=== PATIENT | female | born 1945 | race Caucasian/White ===

== ENCOUNTER → 2020-02-15 12:09 | Outpatient (BNVA) | payer MEDICARE, OTHER, SELFPAY | PROVIDERS: Family Provider Nurse Practitioner | DX: Z11.59 Encounter for screening for other viral diseases (principal) | CPT/HCPCS: 87635 ==

== ENCOUNTER → 2020-02-18 11:23 | Outpatient (BNVA) | payer MEDICARE, SELFPAY | PROVIDERS: Family Provider Nurse Practitioner; Visit Provider Nurse Practitioner Family | DX: Z11.59 Encounter for screening for other viral diseases (principal) | CPT/HCPCS: 87635 ==

== ENCOUNTER → 2021-10-11 13:38 | Outpatient (BNVA) | payer MEDICARE, OTHER, SELFPAY | PROVIDERS: Family Provider Nurse Practitioner; Visit Provider Nurse Practitioner | DX: N39.0 Urinary tract infection, site not specified (principal) | CPT/HCPCS: 81000 ==

== ENCOUNTER → 2022-10-24 11:44 | Outpatient (BNVA) | payer MEDICARE, OTHER, SELFPAY | PROVIDERS: Family Provider Nurse Practitioner; Visit Provider Nurse Practitioner | DX: I10 Essential (primary) hypertension (principal) | CPT/HCPCS: 80048 ==

== ENCOUNTER → 2022-11-26 10:04 | Outpatient (BNVA) | payer MEDICARE, OTHER, SELFPAY | PROVIDERS: Family Provider Nurse Practitioner; Visit Provider Nurse Practitioner | DX: R50.9 Fever, unspecified (principal) | CPT/HCPCS: 81000; 85025; 87400; 87426 ==

== ENCOUNTER 2023-04-09 10:00 | Outpatient (CLI) | payer MEDICARE, OTHER, SELFPAY | END 2023-04-09 10:01 | disposition home or self-care (01) | LOC: SLEEP 04-10 11:17 | PROVIDERS: Family Provider Nurse Practitioner; Visit Provider Internal Medicine | DX: R06.02 Shortness of breath (principal) | CPT/HCPCS: 94762 ==

== ENCOUNTER → 2024-07-06 09:02 | Outpatient (BNVA) | payer MEDICARE, OTHER, SELFPAY | PROVIDERS: Family Provider Nurse Practitioner; PCP Nurse Practitioner Family; Visit Provider Nurse Practitioner Family | DX: S80.01XA Contusion of right knee, initial encounter (principal); M17.11 Unilateral primary osteoarthritis, right knee; M79.644 Pain in right finger(s); M19.041 Primary osteoarthritis, right hand; X58.XXXA Exposure to other specified factors, initial encounter | CPT/HCPCS: 73130; 73562 ==

== ENCOUNTER → 2024-08-11 13:37 | Outpatient (BNVA) | payer MEDICARE, OTHER, SELFPAY | PROVIDERS: Family Provider Nurse Practitioner; PCP Nurse Practitioner Family; Visit Provider Student in an Organized Health Care Education/Training Program | DX: M17.0 Bilateral primary osteoarthritis of knee (principal); M25.561 Pain in right knee; M25.562 Pain in left knee | CPT/HCPCS: 73560; 73565; 99204 ==

== ENCOUNTER 2024-09-02 14:58 | Outpatient (CLI) | payer MEDICARE, OTHER, SELFPAY ==
--- NOTE | 2024-09-02 15:08 | CT_ITS ---
WS: [id number] CT LEFT KNEE, NONCONTRAST [facility] TECHNIQUE: Noncontrast CT of the LEFT knee to include the LEFT hip and ankle. CLINICAL INFORMATION: LEFT TOTAL KNEE ARTHROPLASTY SURGICAL PLANNING DLP: 968.[address] scans at [facility] use at least one of these dose optimization techniques: automated exposure control; mA and/or kV adjustment per patient size (includes targeted exams where dose is matched to clinical indication); or iterative reconstruction. FINDINGS: Fixation RIGHT sacroiliac joint. Advanced tricompartment arthritis LEFT knee. Moderate joint effusion. Hypertrophic patella. Soft tissue edema about the knee. Osteopenia. Moderate degenerative narrowing both hips. CT/CT knee LT [place] [id number] IMPRESSION: Images obtained for preoperative purposes.
[2024-09-02 15:48] LABS: Basophils # 0.1 10^3/uL (0.0-0.1); Basophils % 1.1 %; Eosinophils # 0.4 10^3/uL (0.0-0.8); Eosinophils % 5.9 %; Hematocrit 33.6 % (36-47); Lymphocytes # 1.9 10^3/uL (0.8-4.8); Lymphocytes % 30.2 %; Mean Corpuscular HGB Conc 31.5 g/dL (30-55); Mean Corpuscular Hemoglobin 31.5 pg (27-33); Mean Corpuscular Volume 99.7 fl (85-98); Mean Platelet Volume 10.2 fL (7.4-10.4); Monocytes # 0.7 10^3/uL (0.2-0.9); Monocytes % 10.6 %; Neutrophils # 3.18 10^3/uL (1.8-7.7); Nucleated Red Blood Cells % 0 %; Platelet Count 230 10^3/cmm (157-399); Red Blood Count 3.37 10^6/uL (3.85-5.65); Red Cell Distribution Width 12.9 % (12.1-15.1); White Blood Count 6.12 10^3/uL (3.29-11.43)
[2024-09-02 16:00] LABS: Bilirubin Urine Negative (Negative); Blood Urine Negative (Negative); Glucose Urine UA Negative (Normal); Ketones Urine Negative (Negative); Leukocyte Esterase Urine Negative (Negative); Nitrate Urine Negative (Negative); Protein Urine 1+ (Negative); Specific Gravity, Urine 1.017 (1.005-1.030); Urine Appearance Clear (CLEAR); Urine Color Yellow (Yellow); Urobilinogen Urine 0.2 mg/dL (Negative); pH Urine 6.5 (5-7)
[2024-09-02 16:06] LABS: Alanine Aminotransferase < 5 U/L (0-33); Albumin Level 3.8 g/dL (3.5-5.2); Alkaline Phosphatase 120 U/L (35-105); Anion Gap 13.3 (5-19); Aspartate Amino Transferase 16 U/L (0-32); Blood Urea Nitrogen 29 mg/dL (8-23); Carbon Dioxide 29 mmol/L (22-29); Chloride 102 mmol/L (98-107); Globulin 2.8 g/dL (1.3-4.6); Glucose 107 mg/dL (65-115); Osmolality Calculated 296 mOsm/kg (285-295); Potassium 4.3 mmol/L (3.5-5.1); Sodium 140 mmol/L (136-145); Total Bilirubin 0.2 mg/dL (0.15-1.2); Total Protein 6.6 g/dL (6.6-8.7)
[2024-09-02 16:39] LABS: Add Urine Culture? No; Add Urine Microscopic? YES; Bacteria Urine TRACE /hpf; Squamous Epithelial Cell Urine 0-4 /hpf (0-5); UA Manual Slide Review YES; WBC Urine 0-4 /hpf (0-5)
== END 2024-09-02 14:59 | disposition home or self-care (01) ==
LOC: RAD 15:03
PROVIDERS: Family Provider Nurse Practitioner; PCP Nurse Practitioner Family; Visit Provider Student in an Organized Health Care Education/Training Program
DX: M17.12 Unilateral primary osteoarthritis, left knee (principal); Z01.818 Encounter for other preprocedural examination; M43.28 Fusion of spine, sacral and sacrococcygeal region; R93.6 Abnormal findings on diagnostic imaging of limbs; M85.80 Other specified disorders of bone density and structure, unspecified site; M16.0 Bilateral primary osteoarthritis of hip
CPT/HCPCS: 36415; 73700; 80053; 81001; 85025

== ENCOUNTER → 2024-09-06 11:12 | Outpatient (BNVA) | payer MEDICARE, OTHER, SELFPAY | PROVIDERS: Family Provider Nurse Practitioner; PCP Nurse Practitioner Family; Visit Provider Family Medicine | DX: Z01.818 Encounter for other preprocedural examination (principal); R94.31 Abnormal electrocardiogram [ECG] [EKG] | CPT/HCPCS: 93005 ==

== ENCOUNTER 2024-09-20 10:30 | Inpatient (IN) | payer MEDICARE, OTHER, SELFPAY ==
[2024-09-20] VITALS (21 sets, daily range): BP systolic 100–176; BP diastolic 61–81; PULSE 60–91; RESP 15–23; TEMP 36.1–36.9; O2SAT 93–99; BMI 34.3
--- NOTE | 2024-09-20 05:55 | USCV_ITS ---
Sal Mariano Age: 79 Gender: F : 1945 Exam Date: 09/20/2024 06:11 Ordering Phys: Saúl Moise DO Technologist: [place] [facility] [place]: [place] surg PROCEDURES: The venous duplex Doppler examination of both lower extremities was performed in the standard fashion. The following venous structures were evaluated: common femoral vein, profunda vein, proximal portion of the greater saphenous vein, superficial femoral vein, and the popliteal vein. FINDINGS: Normal 2-D Doppler and augmentation and compressibility throughout the lower extremity venous structures. Additional imaging through the proximal calf veins also reveals no thrombus. Limited evaluation of the greater saphenous vein is patent with no thrombus. CONCLUSIONS No evidence of right lower extremity DVT. No evidence of left lower extremity DVT. Lisanrdo Dias MD (Electronically Signed) Final Date: 20 September 2024 09:14 S
[2024-09-20] MEDS: lactated ringers 500 ML IV (06:33)
[2024-09-20] MEDS: acetaminophen 1,000 MG/100 ML PIGGYBACK 400 MG IV ×3 (06:35→23:25)
[2024-09-20] MEDS: midazolam 1 mg/mL INJ 2 mL 2 MG IVP (06:39)
[2024-09-20] MEDS: ketorolac 30 mg/mL INJ IVP (06:40)
[2024-09-20 06:41] LABS: Basophils # 0.1 10^3/uL (0.0-0.1); Eosinophils # 0.3 10^3/uL (0.0-0.8); Eosinophils % 4.6 %; Hematocrit 35.7 % (36-47); Lymphocytes # 1.8 10^3/uL (0.8-4.8); Lymphocytes % 26.5 %; Mean Corpuscular HGB Conc 33.9 g/dL (30-55); Mean Corpuscular Volume 94.4 fl (85-98); Monocytes # 0.8 10^3/uL (0.2-0.9); Monocytes % 10.8 %; Neutrophils # 3.95 10^3/uL (1.8-7.7); Neutrophils % 56.8 %; Nucleated Red Blood Cells % 0 %; Platelet Count 262 10^3/cmm (157-399); Red Blood Count 3.78 10^6/uL (3.85-5.65); Red Cell Distribution Width 12.8 % (12.1-15.1); White Blood Count 6.95 10^3/uL (3.29-11.43)
--- NOTE | 2024-09-20 06:52 | ANES.PREANE2 ---
Pre-Anesthetic Assessment Height/Weight: Height 1.63 m Weight 90.718 kg Temp Pulse Resp BP Pulse Ox O2 Del Method 97.0 F L 65 18 176/65 97 Room Air 09/20/24 06:47 09/20/24 06:47 09/20/24 06:47 09/20/24 06:47 09/20/24 06:47 09/20/24 06:47 Operation Date: 09/20/24 07:00 Proposed Procedures p Sher Robot Total Knee Arthroplasty(Left) - Saúl Moise DO Familial anesthetic complications: NOne Was Beta Eliana taken within 24 hours: N/A Was Clonidine taken within 24 hours: N/A Last intake: Intake Last Liquid Date 09/19/24 Last Liquid Time 22:00 Last Solid Date 09/19/24 Last Solid Time 22:00 Social No alcohol and No tobacco Exam alert, oriented x 3, clear to auscultation bilaterally and regular rate & rhythm Airway Mallampati: Class III Pulmonary Sleep Apnea CV/HEM Hypertension GI Gastroesophageal Reflux Disease Neuropsych parkinsons Anesthetic Plan ASA status: 3 Anesthesia: Regional (specify below) Other: Spinal = Regional Risk of > 500 ml blood loss (7ml/kg in children): No Other Pertinent Information patient had allergic reaction to contrast dye in CT myelogram, became paralyzed in her legs for just a few minutes Medications/Allergies Home Medications ?Medication ?Instructions ?Recorded ?Confirmed ?Last Taken ?Type cyanocobalamin (vitamin B-12) 1,000 mcg SUBCUT DAILY 10/11/21 09/20/24 09/10/24 History 1,000 mcg/mL injection solution famotidine 40 mg tablet 40 mg PO DAILY 10/11/21 09/20/24 09/20/24 History ferrous fumarate 325 mg (106 mg 325 mg PO DAILY 10/11/21 09/20/24 09/20/24 History iron) tablet gabapentin 100 mg capsule 100 mg PO TID 10/11/21 09/20/24 09/20/24 History lorazepam 1 mg tablet 1 mg PO TID PRN Anxiety 10/11/21 09/20/24 09/17/24 History magnesium oxide 500 mg capsule 500 mg PO DAILY 10/11/21 09/20/24 09/20/24 History memantine 10 mg tablet 10 mg PO BID 10/11/21 09/20/24 09/20/24 History albuterol sulfate 90 mcg/actuation 1 inh inhalation QID 08/11/24 09/20/24 Unknown History aerosol inhaler carbidopa 25 mg-levodopa 100 mg 1 tab PO TID 08/11/24 09/20/24 09/20/24 History tablet (Sinemet) carvedilol 12.5 mg tablet 12.5 mg PO ONCE 08/11/24 09/20/24 09/17/24 History diltiazem HCl 240 mg 240 mg PO DAILY 08/11/24 09/20/24 09/20/24 History capsule,extended release 24 hr (Cardizem CD) donepezil 10 mg tablet 10 mg PO DAILY 08/11/24 09/20/24 09/20/24 History duloxetine 60 mg capsule,delayed 60 mg PO DAILY 08/11/24 09/20/24 09/20/24 History release fluticasone furoate 27.5 1 spray intranasal DAILY 08/11/24 09/20/24 09/17/24 History mcg/actuation nasal spray,suspension lisinopril 40 mg tablet 40 mg PO DAILY 08/11/24 09/17/24 09/17/24 History mirtazapine 15 mg tablet 15 mg PO DAILY 08/11/24 09/20/24 09/20/24 History multivitamin 1 tab PO DAILY 08/11/24 09/20/24 09/20/24 History pantoprazole 40 mg tablet,delayed 40 mg PO DAILY 08/11/24 09/20/24 09/20/24 History release rosuvastatin 10 mg tablet 10 mg PO DAILY 08/11/24 09/20/24 09/20/24 History tramadol 50 mg tablet 50 mg PO DAILY 08/11/24 09/20/24 09/17/24 History Allergies Allergy/AdvReac Type Severity Reaction Status Date / Time ivp dye Allergy Unknown Uncoded 09/20/24 06:18 Current Medications Generic Name Dose Route Start Last Admin Trade Name Freq PRN Reason Stop Dose Admin Lactated Ringer's 500 mls @ 500 mls/hr 09/20/24 05:55 09/20/24 06:33 Lactated Ringers IV 09/20/24 06:54 500 mls/hr .Q1H ONE Administration Midazolam HCl 2 mg 09/20/24 05:54 09/20/24 06:39 Midazolam 1 Mg/Ml Inj 2 Ml IVP 2 mg Q5M PRN Administration [facility]op [facility] Social History Smoking and tobacco/nicotine status: never used tobacco/nicotine Marital status: Data Anesthesia 09/20/24 06:29 09/20/24 06:29 Short CBC 09/20/24 Range/Units 06:29 WBC 6.95 (3.29-11.43) 10^3/uL Hgb 12.10 (11.27-16.99) g/dL Hct 35.7 L (36-47) % MCV 94.4 (85-98) fl Plt Count 262 (157-399) 10^3/cmm Neut % (Auto) 56.8 % Neut # (Auto) 3.95 (1.8-7.7) 10^3/uL Cardiac Studies: No Data to Display
--- NOTE | 2024-09-20 06:54 | ANES.PROC ---
Anesthesia Procedures Procedure/Date: 09/20/24 Nerve Block ^: Nerve Block 1: Main Anesthesia: spinal anesthesia block Time Out Performed: Yes Consent: requested by attending/covering physician, from patient, from other, risks and benefits reviewed and patient agrees to proceed Nerve block location: adductor canal (L) Anesthesia monitors applied: pulse oximetry, EKG, BP cuff and oxygen Nerve block position: supine Anesthetic Used: ropivicaine 0.5% (30 ml) and with decadron (4 mg) Ultrasound used to: recognize landmarks and visualize and ID femerol nerve Nerve Stimulator Used?: No Interscalene/Femoral BLK: 4 stimuplex 21 g needle used for position and inplane approach, visualize local anesthetic spread and no vascular puncture identified Injection: neg aspiration of heme Patient Tolerated Procedure: well Complications: none
--- NOTE | 2024-09-20 06:57 | W.PM.OPSFHP ---
Same Day Surgery H&P Indication for Procedure/HPI DATE OF PROCEDURE: September 20, 2024 CHIEF COMPLAINT/INDICATIONFOR SURGICAL PROCEDURE: Left knee DJD PREOP DIAGNOSIS: Left knee DJD PLANNED PROCEDURE: Operation Date: 09/20/24 07:00 Proposed Procedures p Sher Robot Total Knee Arthroplasty(Left) - Saúl Moise, DO Medications/Allergies* Home Medications ?Medication ?Instructions ?Recorded ?Confirmed ?Type cyanocobalamin (vitamin B-12) 1,000 mcg SUBCUT DAILY 10/11/21 09/20/24 History 1,000 mcg/mL injection solution famotidine 40 mg tablet 40 mg PO DAILY 10/11/21 09/20/24 History ferrous fumarate 325 mg (106 mg 325 mg PO DAILY 10/11/21 09/20/24 History iron) tablet gabapentin 100 mg capsule 100 mg PO TID 10/11/21 09/20/24 History lorazepam 1 mg tablet 1 mg PO TID PRN Anxiety 10/11/21 09/20/24 History magnesium oxide 500 mg capsule 500 mg PO DAILY 10/11/21 09/20/24 History memantine 10 mg tablet 10 mg PO BID 10/11/21 09/20/24 History albuterol sulfate 90 mcg/actuation 1 inh inhalation QID 08/11/24 09/20/24 History aerosol inhaler carbidopa 25 mg-levodopa 100 mg 1 tab PO TID 08/11/24 09/20/24 History tablet (Sinemet) carvedilol 12.5 mg tablet 12.5 mg PO ONCE 08/11/24 09/20/24 History diltiazem HCl 240 mg 240 mg PO DAILY 08/11/24 09/20/24 History capsule,extended release 24 hr (Cardizem CD) donepezil 10 mg tablet 10 mg PO DAILY 08/11/24 09/20/24 History duloxetine 60 mg capsule,delayed 60 mg PO DAILY 08/11/24 09/20/24 History release fluticasone furoate 27.5 1 spray intranasal DAILY 08/11/24 09/20/24 History mcg/actuation nasal spray,suspension lisinopril 40 mg tablet 40 mg PO DAILY 08/11/24 09/17/24 History mirtazapine 15 mg tablet 15 mg PO DAILY 08/11/24 09/20/24 History multivitamin 1 tab PO DAILY 08/11/24 09/20/24 History pantoprazole 40 mg tablet,delayed 40 mg PO DAILY 08/11/24 09/20/24 History release rosuvastatin 10 mg tablet 10 mg PO DAILY 08/11/24 09/20/24 History tramadol 50 mg tablet 50 mg PO DAILY 08/11/24 09/20/24 History Allergies/Adverse Reactions Allergy/AdvReac Type Severity Reaction Status Date / Time ivp dye Allergy Unknown Uncoded 09/20/24 06:18 Current Medications: Generic Name Dose Route Start Last Admin Trade Name Deandre PRN Reason Stop Dose Admin Midazolam HCl 2 mg 09/20/24 05:54 09/20/24 06:39 Midazolam 1 Mg/Ml Inj 2 Ml IVP 2 mg Q5M PRN Administration Preop Anxiety Pertinent History/Comorbid Conditions* Social History Smoking and tobacco/nicotine status: never used tobacco/nicotine Marital status: Pertinent Exam Findings alert, oriented x 3, operative site marked and procedure specific exam findings Please refer to detailed orthopedic examination on 08/11/2024 listed below: Left knee Exam: ROM 5-105 degrees TTP over retropatellar space Patellar crepitus with ROM Medial joint line tenderness to palpation Lateral joint line tenderness to palpation Palpable joint effusion Negative Kinza's Negative Tim's Negative anterior drawer 5-10 degrees of Varus deformity, correctable on examStable Varus and Valgus stress Gross motor sensory intact Smooth hip ROM, No pain Recommendations Surgery/Procedure today Other Plans: Plan proceed to the OR today for a left total knee arthroplasty?Sher robotic assisted. Patient's failed all conservative treatment at this point time ready to proceed with left total knee arthroplasty?Sher robotic assisted she understands the ins and outs procedure the risk benefits complication alternatives surgery and through shared decision-making elects proceed with surgical intervention. All questions answered at this time. Patient is cleared the preoperative clearance process she has had no change in overall health since her last office visit. We did get a preoperative ultrasound scan of the bilateral lower extremities just to rule out any asymptomatic blood clot as she did have a history of a DVT when she was 19 after a trauma. This was done this morning and and confirmed by solar technician clear no evidence of acute DVT. Patient at this point times ready to proceed with left total knee arthroplasty all questions answered. Coding Level of Care Code Acute Code for Singh Rockwell
[2024-09-20] MEDS: ceFAZolin 2,000 MG in sodium chloride 0.9% (plus) 50 ML 100 MG IV ×3 (07:16→23:43)
[2024-09-20] MEDS: sodium chloride 0.9% 1,000 ML 30 ML IV (07:20)
[2024-09-20 07:35] LABS: Blood Urea Nitrogen 27 mg/dL (8-23); Calcium 8.9 mg/dL (8.5-10.5); Carbon Dioxide 27 mmol/L (22-29); Chloride 104 mmol/L (98-107); Creatinine Clr Calc Pharmacy 36.1305; Glucose 103 mg/dL (65-115); Osmolality Calculated 297 mOsm/kg (285-295); Sodium 141 mmol/L (136-145)
[2024-09-20 07:36] LABS: Anion Gap 14.4 (5-19); Potassium 4.4 mmol/L (3.5-5.1)
[2024-09-20] MEDS: EPINEPHrine 1 mg/mL INJ XX (08:20)
[2024-09-20] MEDS: ROPivacaine 0.2% Premix 100 mL 200 MG INTRA-ARTI (08:20)
[2024-09-20] MEDS: ketorolac 30 mg/mL INJ XX (08:20)
[2024-09-20] MEDS: VANCOMYCIN ADD-Vantage 1,000 MG VIAL 2000 MG XX (08:22)
--- NOTE | 2024-09-20 09:53 | W.PM.BPON ---
Date of Procedure: [September 20, 2024] Surgeon: [Dr. Moise DO] Granular Operator(s): [Aris Moise PA-C] Procedure(s) performed: [Left total knee arthroplasty with Sher robotic assist] Findings of the procedure(s): [Left knee degenerative joint disease, procedure went well and as planned] Estimated blood loss: [50 ml] Specimen(s) removed: [N/A] Post-operative diagnosis: [Left knee degenerative joint disease]
--- NOTE | 2024-09-20 09:55 | PM.PACU ---
PACU note Narrative: Patient is a 79-year-old female that just underwent a left total knee arthroplasty. Pt transferred to PACU in stable condition. Dressing is dry. pt is awake and alert. Distal pulses are palpable toes are warm and well-perfused. Cap refill is normal and under 2 seconds. Unable to further assess motor or sensation to left leg due to residual spinal block. Pain is controlled. Exam: awake Disposition: admitted
--- NOTE | 2024-09-20 10:14 | XRR_ITS ---
PROCEDURE INFORMATION: Exam: XR Left Knee Exam date and time: 09/20/2024 11:32 AM Age: 79 years old Clinical indication: Device placement; Joint replacement hardware; Prior surgery; Surgery date: Post-operative (0-2 days); Surgery type: L tka, ; additional info: Post L tka, do in pacu TECHNIQUE: Imaging protocol: Radiologic exam of the left knee. Views: 1 or 2 views. COMPARISON: CT knee LT [facility] [id number] 09/02/2024 3:12 PM FINDINGS: Bones/joints: Total knee replacement. Anatomic alignment. Bone and metal are intact. Soft tissues: Soft tissue swelling. Periarticular and intra-articular gas. Anterior skin patricia. XR/XR knee LT 1-2V [id number] IMPRESSION: Postoperative findings.
--- NOTE | 2024-09-20 10:16 | P.OP_ITS ---
Operative Report Date of procedure: September 20, 2024 Surgeon: Saúl Moise DO Solar Design Engineer: Aris Moise PA-C: PA was necessary for assistance in this case with leg positioning retraction and protection of neurovascular structures as well as assistance in implantation wound closure and dressing application. Procedure: Preoperative diagnosis: Left knee degenerative joint disease Post-op diagnosis: Same Procedure done: Left total knee arthroplasty, cemented?robotic assisted Sher Implants: Dami triathlon size 3 femur CR cemented?left Dami triathlon size? 3 tibia universal baseplate cemented [place] triathlon symmetric patella size 29 mm [place] triathlon polyethylene 10mm Surgeon: Saúl Moise DO Estimated blood?loss: 50 mL Tourniquet 70 minutes IV fluids: 1800 mL Urine output: 200 mL Complications: None Condition: stable Disposition: floor Brief History: Patient is a 79-year-old female with with chronic?left knee degenerative joint d isease.? Patient has been worked up in the outpatient setting in the orthopedic office at this point time through shared decision making given? [id number] arthritis as well as failed conservative treatment, and pt would?like to proceed with a?left total knee arthroplasty.? Through shared decision making elected to proceed with surgical intervention for?left total knee arthroplasty.? We talked about continued conservative treatment and surgical intervention as far as the risk benefits complications alternatives surgical and nonsurgical treatment options.? At this point time understanding patient risks with surgery pt agrees to proceed with surgical intervention.? Once again? risk with surgery include but are not?limited to make it better make it worse blood clot, heart attack, stroke, on the table, infection, injury to nerves or vessels, persistent pain, arthrofibrosis, implant failure.? Understanding these risks patient agrees to proceed with surgical intervention consent was obtained in the office.? All questions answered. Procedure: Patient was seen and evaluated in the preoperative holding area.? Consent was reviewed and signed with patient with plan for?left total knee arthroplasty.? All questions answered.? Correct extremity marked.? Patient seen and evaluated by the anesthesia department and once cleared for surgery was taken back to the operative suite.? Patient was placed into a supine position on the OR table.? All bony prominences were well-padded.? Patient was appropriately secured to the bed.? Patient underwent anesthesia per the anesthesia department.? Patient received spinal anesthesia and? Choudhury catheter was placed.? A nonsterile tourniquet was applied to the?left thigh.? At this point in time a final timeout performed.? Patient received appropriate preoperative antibiotics and TXA. Next the?left?lower extremity was then prepped and draped in standard orthopedic fashion. Esmarch tourniquet was used exsanguinate the?left?lower extremity.? Tourniquet was insufflated to 250 mmHg. A standard anterior incision was made over midline of the knee.? Sharp scalpel excision through skin and subcutaneous tissue full-thickness skin flaps were m moira.? Fascia was elevated off of the extensor retinaculum was stable with medial parapatellar arthrotomy was then made.? The performed standard sequential releases..? Immediately on entry into the joint patient was found to have severe eburnated bone and tricompartmental arthritic changes noted.? With significant osteophyte formation.? Next the the patella was then stuffed and the knee was then flexed.?? Ryan was placed superiorly around the anterior aspect of the femur this was freed of synovium and I subsequently then placed by 2 femur pins to establish my femur arrays for the Sher robot.? These were then placed bicortically and? femur array was then appropriately secured with appropriate visualization.? Next attention was turned towards the tibial rays.? These were then drilled seque ntially bicortically in parallel fashion and intraincisional.? I then placed my guide as well as my tibial array on in place.? This was appropriately secured and had excellent visualization with the Sher robot.? Next the tibial checkpoint as well as femur checkpoint were then placed.? At this point time I then subsequently established my head center as well as my medial?lateral malleoli as well as my checkpoints.? Next utilizing standard Sher technology I then mapped out the appropriate points and confirmation points around the femur as well as the tibia in standard fashion.? Once this was then done I then removed all osteophytes in preparation for dynamic testing.? All osteophytes were removed as well as I removed the ACL and the PCL was excised due to its significant tearing and degeneration noted.? At this point time the knee was brought into full extension and we performed our standard evaluation of our gap balancing stressing his?ligaments and extension as well as flexion appropriate adjustments were made to have appropriate gap balancing in both flexion and extension.? This plan for final cuts.? We get a preoperative plan evaluating our implants which was a size 3 femur and a size 3 tibia.? Next we brought in the Sher robot and sequentially made our femur cuts.? All excess bony cuts were then removed.? Finally we made our tibial cut.? Once this was done a standard PCL retractor was then placed into this position I excised the medial and?lateral meniscus.? The tibial cut was then subsequently removed all excess bony debris was removed.? Of note patient did have a cyst anteriorly on the tibial was still intact cortical rim plan was to utilize cementation which would fill up the cyst this was scooped and debrided of any cystic tissue. I then utilized a?lamina adult basic education instructor and remove the posterior osteophytes.? At this point time sized the tibia and confirmed this was a size 3.? I utilized our blunt probe to establish rotation of tibial implant.? Once this was done I then placed my tibia size 3 trial in appropriate position and then subsequently placed tibial pins to hold this into place placed and trialed up to a size 10 mm poly as well as a size 3 femur which was appropriately impacted in place knee was then subsequently brought into extension. Trials were then assessed,? this was stable with varus valgus stress in extension as well as had symmetrical translation when brought into flexion demonstrating symmetrical gaps. I had excellent balance gaps in flexion and extension with varus and valgus stresses.? At this point I was satisfied with these implants these were then verified and opened on the back table size 3 tibia, size 3 femur,? size 10 mm polythickness.? We did confirm appropriate gap balancing and stresses as well as alignment utilizing? Sher and were satisfied with this plan.? ?At this point time with my trials in place I then towel clip the patella everted this made appropriate measurements subsequently utilizing freehand technique performed by patellar resurfacing this was confirmed to be appropriate resection and subsequently sized to be a 29 mm symmetric.? My drill peg guides were then clamped and appropriate position and appropriate position in the patella for appropriate tracking and parallel with the joint.? Pegs were drilled trial implant was placed and the knee was then subsequently ranged and found to have excellent patellar tracking.? Femur pegs were then drilled.? All checkpoints as well as guidepins and arrays were removed and appropriate counts made.? Satisfied with our tibial placement rotation I then utilized the keel punch and prepped the tibia.? At this point time all of our trial implants were removed.? The wound bed? was thoroughly irrigated and dried and prepped for cementation.? Cement was mixed on the back table.? Once cement was ready this was then covered onto the tibia and the tibial baseplate was then impacted and all excess cement was removed.? Next the polyethylene was then impacted into place on the tibial baseplate.? Next cement was placed onto the femur as well as under the femur implants and impacted in to place and all excess cement was extruded and removed.? Knee was taken into full extension? to clear all excess cement was removed.? Warm saline was placed over the joint.? I then towel clip patella and dried for cementation. cemented the patella into place.? This was all clamped and the cement was allowed to cure.? Thorough irrigation performed with pulse?lavage.? I then placed my periarticular injection while the cement was curing.? Once cured the knee was taken through range of motion and had excellent stability and gaps were balanced in flexion and extension.? Tourniquet was then deflated. hemostasis satisfactory with electrocautery.? Vancomycin powder was placed in wound bed for antibiotic infection prophylaxis. next I then subsequently closed the capsule with Ethibond suture as well as a running strata fix suture.? Knee was then taken through range of motion 30 times.? Next the skin was then closed in?layered fashion of running stratifix sutures of deep and subcutenous tissue. ?Closed in flexion and patricia was then placed over the incision this allowed to cure.? Incision was covered with shannon incisional VAC, with ABDs soft roll and Danny wrap.? Patient was then awakened from anesthesia and taken to PACU in stable condition. Disposition: Patient taken to PACU in stable condition will be admitted to the floor for pain control PT/OT weight-bear as tolerated?left?lower extremity dressing changes as needed, DVT prophylaxis. Pain control. Patient will receive appropriate postoperative antibiotics. patient will be seen today by the internal medicine team for medical management.? Patient will follow up with the office in 2 weeks.? Patient understands agrees with current plan.? All questions answered.
--- NOTE | 2024-09-20 10:47 | SUR.EXTENDED ---
Pt A&O x3, denies pain, ice on left knee. Vitals stable, see documentation. Choudhury catheter no kinks, bag hanging on bed. Pt taken to OB room, RN at bedside with three of pt's family members. 20gIV R forearm patent.
--- NOTE | 2024-09-20 10:55 | PM.CONSULT ---
Providers/Reason For Consult Consulting Physician/Specialty*: Hospitalist Reason for Consult*: Medical management Attending Physician: Saúl Moise DO Primary Care Provider: Sixto Paul MD History of Present Illness History of Present Illness Very pleasant 79-year-old lady with history of Parkinson's disease, hypertension, hyperlipidemia, TIMOTHY, CKD, remote history of DVT, bradycardia, status post PPM in May, follows with cardiology in [place], anemia, osteoarthritis of both knees underwent total left knee replacement in an uneventful procedure with spinal anesthesia, EBL 50 mL today. A consult has been placed for hospitalist follow-up due to chronic medical conditions. She reports she otherwise has been at baseline state of health. Denies any recent medication changes. Without other recent acute illness. Review of Systems Const: Denies: fever(s), chills, body aches or malaise ENMT: Denies: throat pain Card: Denies: chest pain, edema, pre-syncope or dyspnea on exertion Resp: Denies: dyspnea, productive cough, change in phlegm color or hemoptysis GI: Denies: abdominal pain, nausea, vomiting, diarrhea, constipation, hematochezia or melena : Denies: flank pain, urinary frequency or hematuria Musc: Reports: other (Difficulties with ambulation); Denies: back pain, joint swelling or joint redness Skin/Breast: Denies: rash or new lesions Neuro: Denies: headache(s) or confusion Medications/Allergies Home Medications ?Medication ?Instructions ?Recorded ?Confirmed ?Last Taken ?Type cyanocobalamin (vitamin B-12) 1,000 mcg SUBCUT DAILY 10/11/21 09/20/24 09/10/24 History 1,000 mcg/mL injection solution famotidine 40 mg tablet 40 mg PO DAILY 10/11/21 09/20/24 09/20/24 History ferrous fumarate 325 mg (106 mg 325 mg PO DAILY 10/11/21 09/20/24 09/20/24 History iron) tablet gabapentin 100 mg capsule 100 mg PO TID 10/11/21 09/20/24 09/20/24 History lorazepam 1 mg tablet 1 mg PO TID PRN Anxiety 10/11/21 09/20/24 09/17/24 History magnesium oxide 500 mg capsule 500 mg PO DAILY 10/11/21 09/20/24 09/20/24 History memantine 10 mg tablet 10 mg PO BID 10/11/21 09/20/24 09/20/24 History albuterol sulfate 90 mcg/actuation 1 inh inhalation QID 08/11/24 09/20/24 Unknown History aerosol inhaler carbidopa 25 mg-levodopa 100 mg 1 tab PO TID 08/11/24 09/20/24 09/20/24 History tablet (Sinemet) carvedilol 12.5 mg tablet 12.5 mg PO ONCE 08/11/24 09/20/24 09/17/24 History diltiazem HCl 240 mg 240 mg PO DAILY 08/11/24 09/20/24 09/20/24 History capsule,extended release 24 hr (Cardizem CD) donepezil 10 mg tablet 10 mg PO DAILY 08/11/24 09/20/24 09/20/24 History duloxetine 60 mg capsule,delayed 60 mg PO DAILY 08/11/24 09/20/24 09/20/24 History release fluticasone furoate 27.5 1 spray intranasal DAILY 08/11/24 09/20/24 09/17/24 History mcg/actuation nasal spray,suspension lisinopril 40 mg tablet 40 mg PO DAILY 08/11/24 09/17/24 09/17/24 History mirtazapine 15 mg tablet 15 mg PO DAILY 08/11/24 09/20/24 09/20/24 History multivitamin 1 tab PO DAILY 08/11/24 09/20/24 09/20/24 History pantoprazole 40 mg tablet,delayed 40 mg PO DAILY 08/11/24 09/20/24 09/20/24 History release rosuvastatin 10 mg tablet 10 mg PO DAILY 08/11/24 09/20/24 09/20/24 History tramadol 50 mg tablet 50 mg PO DAILY 08/11/24 09/20/24 09/17/24 History Allergies Allergy/AdvReac Type Severity Reaction Status Date / Time ivp dye Allergy Unknown Uncoded 09/20/24 06:18 Current Medications Generic Name Dose Route Start Last Admin Trade Name Freq PRN Reason Stop Dose Admin Sodium Chloride 1,000 mls @ 30 mls/hr 09/20/24 06:00 09/20/24 08:45 Sodium Chloride 0.9% IV 09/21/24 05:59 Infused .Q24H MERLINE Infusion Midazolam HCl 2 mg 09/20/24 05:54 09/20/24 06:39 Midazolam 1 Mg/Ml Inj 2 Ml IVP 2 mg Q5M PRN Administration Preop Anxiety PFSH Acute PFSH: Medical History Pacemaker Bradycardia Anemia DVT (deep venous thrombosis) CKD (chronic kidney disease) TIMOTHY (obstructive sleep apnea) HLD (hyperlipidemia) HTN (hypertension) Parkinson disease Social History Smoking and tobacco/nicotine status: never used tobacco/nicotine Marital status: Vitals/I&O/Wt Last Vital Signs Temp 97.6 F 09/20/24 10:20 Pulse 60 09/20/24 10:20 Resp 23 H 09/20/24 10:20 BP 155/68 09/20/24 10:20 Pulse Ox 95 09/20/24 10:20 O2 Del Method Room Air 09/20/24 10:20 09/19/24 09/20/24 09/20/24 22:59 06:59 14:59 Intake Total 100 / 100 2350 / 2350 Output Total 50 / 50 Balance 100 / 100 2300 / 2300 Weight last 48 hrs Weight 90.718 kg Physical Exam Const: COMMON NORMALS: patient oriented x3 and alert GENERAL APPEARANCE: cooperative ORIENTATION/CONSCIOUSNESS: Yes awake HENMT: COMMON NORMALS: oropharynx normal Neck/C-Spine: COMMON NORMALS: no JVD Resp: COMMON NORMALS: normal respiratory effort and clear to auscultation bilaterally AUSCULTATION: clear to auscultation bilaterally Cardio: COMMON NORMALS: no JVD, regular rhythm, S1 normal heart sound present, S2 normal heart sound present and No murmurs present (Cardio) RHYTHM: regular rhythm HEART SOUNDS: S1 normal heart sound present and S2 normal heart sound present GI: COMMON NORMALS: Normal to inspection, nondistended, normoactive bowel sounds present, Soft to palpation and non-tender PALPATION: Yes Soft to palpation Extremity: COMMON NORMALS: no joint enlargement and no pedal edema NARRATIVE EXTREMITY EXAM: Left leg in postoperative dressing. Left knee minimal wound VAC. Cold pack. OTHER: She is moving her left foot. Neuro: COMMON NORMALS: patient oriented x3 and moves all extremities SENSORIUM/ORIENTATION: Yes alert Skin: COMMON NORMALS: no rashes or lesions noted GENERAL SKIN EXAM: no rashes or lesions noted Data 09/20/24 06:29 09/20/24 07:00 A&P Assessment and plan (1) S/P total knee arthroplasty: Continues with postoperative care per discussion with orthopedic surgeon after total knee arthroplasty, after uneventful procedure, with spinal dysphagia, EBL 50 mL. Does have history of anemia, pending recheck blood counts tomorrow. Tells me she has pending PT evaluation as well as Eliquis plan for VTE prophylaxis. Also pending case management consultation for postdischarge planning. She does states she has been having mobility difficulties for some time. Per discussion with her family and orthopedics for now it has been tentatively planned for her to return home with home health, although this may be adjusted depending on how she does on assessment. Reviewed vitals, CBC, BMP, venous duplex, orthopedic provider note, discussed with orthopedic surgeon. She does have history of anemia, additionally takes SSRI at home as well as tramadol. Consider holding tramadol if possible with increasing risk of bleeding especially coagulation with SSRI. Acetaminophen, oxycodone as needed for pain. IV Dilaudid as needed for severe breakthrough pain. Currently on IV fluids, resume from oral intake. Reassess blood pressure. Monitor for risk of fluid overload. Plan History of anemia: Repeat blood counts. Would hold tramadol if at all possible. Reassess blood counts. Continue iron supplementation. CKD: Creatinine 1.4 appears to be close to recent baseline. Repeat chemistry pending. Avoid nephrotoxins. Parkinson's disease: Resume carbidopa-levodopa which she takes 3 times daily. HTN: Monitor blood pressures postoperatively. Resume diltiazem. Reassess blood pressure, having been receiving IV fluids once she is resuming oral intake stop IV fluids. Reassess blood pressure prior to resumption of lisinopril. HLD: Continue statin TIMOTHY: Respiratory for consultation for nightly CPAP with 2 L of oxygen. 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 PDMP PDMP Reviewed: Not Reviewed Consult Attestations Medical Necessity Statement: Being observed in the hospital for postoperative management after left TKA with additional comorbidities as above. and High MDM includes amount and/or complexity of data reviewed/ordered [ previous or external records and resulted lab(s)/test(s)] and described risk of complication, morbidity or mortality of management as documented Diagnoses S/P total knee arthroplasty Z96.659
[2024-09-20] MEDS: lactated ringers 1,000 ML 75 ML IV (11:14)
[2024-09-20] MEDS: oxyCODONE 5 mg IR Tab/Cap PO ×3 (12:01→23:51)
[2024-09-20] MEDS: carbidopa-levodopa 25-100mg Tablet 1 EACH PO ×2 (12:33→18:09)
[2024-09-20] MEDS: gabapentin 100 mg Capsule PO ×2 (12:33→18:09)
--- NOTE | 2024-09-20 14:03 | ANE.PACU2 ---
Inpatient post-anesthesia follow up: Airway intact: Yes Vital signs: Temperature 97.6 F Pulse Rate 60 Respiratory Rate 16 Blood Pressure 155/68 Pulse Oximetry 95 Oxygen Delivery Me thod Room Air Oxygen Flow Rate Fraction of Inspir ed Oxygen Hydration adequate: Yes Nausea and vomiting: No Pain level: 1 Mental status: Baseline
[2024-09-20] MEDS: chlorhexidine gluconate 0.12% Btl 473 mL 30 ML MUCOUS MEM ×3 (14:05→20:02)
[2024-09-20] MEDS: iron polysaccharide complex 150 mg Capsule PO (18:08)
[2024-09-20] MEDS: mupirocin oint 22 gm 1 APPLIC NASAL (18:08)
[2024-09-20] MEDS: docusate sodium 100 mg Capsule PO (18:09)
[2024-09-20] MEDS: calcium carb-vit d 600mg/400unit 1 Tablet 1 EACH PO (18:09)
[2024-09-20] MEDS: dilTIAZem ER (24HR) 240 mg Capsule PO (18:10)
[2024-09-20] MEDS: memantine 5 mg tablet 10 MG PO (18:31)
[2024-09-20] MEDS: mirtazapine 15 mg Tablet PO (18:31)
[2024-09-20] MEDS: HYDROmorphone 0.5 MG/0.5 ML INJ IVP (20:02)
[2024-09-21] VITALS (11 sets, daily range): BP systolic 130–185; BP diastolic 60–82; PULSE 76–83; RESP 16–18; TEMP 36.6–36.9; O2SAT 94–97
[2024-09-21] MEDS: lactated ringers 1,000 ML 75 ML IV (01:16)
[2024-09-21 05:03] LABS: Basophils % 0.2 %; Eosinophils % 0.1 %; Hematocrit 28.9 % (36-47); Lymphocytes # 1.2 10^3/uL (0.8-4.8); Lymphocytes % 10.5 %; Mean Corpuscular HGB Conc 31.5 g/dL (30-55); Mean Corpuscular Hemoglobin 31.8 pg (27-33); Mean Platelet Volume 10.9 fL (7.4-10.4); Monocytes # 0.9 10^3/uL (0.2-0.9); Monocytes % 7.8 %; Neutrophils # 9.12 10^3/uL (1.8-7.7); Nucleated Red Blood Cells % 0 %; Platelet Count 265 10^3/cmm (157-399); Red Blood Count 2.86 10^6/uL (3.85-5.65); Red Cell Distribution Width 12.6 % (12.1-15.1); White Blood Count 11.25 10^3/uL (3.29-11.43)
[2024-09-21] MEDS: acetaminophen 1,000 MG/100 ML PIGGYBACK 400 MG IV (05:45)
[2024-09-21] MEDS: oxyCODONE 5 mg IR Tab/Cap PO ×4 (05:56→20:40)
[2024-09-21] MEDS: ceFAZolin 2,000 MG in sodium chloride 0.9% (plus) 50 ML 100 MG IV (06:09)
[2024-09-21] MEDS: chlorhexidine gluconate 0.12% Btl 473 mL 30 ML MUCOUS MEM (08:36)
[2024-09-21] MEDS: iron polysaccharide complex 150 mg Capsule PO ×2 (08:36→18:11)
[2024-09-21] MEDS: ferrous sulfate EC 325 mg Tablet PO (09:29)
[2024-09-21] MEDS: gabapentin 100 mg Capsule PO ×3 (09:29→18:10)
[2024-09-21] MEDS: donepezil 5 MG Tablet 10 MG PO (09:30)
[2024-09-21] MEDS: pantoprazole DR 40 mg Tablet PO (09:30)
[2024-09-21] MEDS: carbidopa-levodopa 25-100mg Tablet 1 EACH PO ×3 (09:30→18:11)
[2024-09-21] MEDS: apixaban 5 mg Tablet 2.5 MG PO ×2 (09:31→18:11)
[2024-09-21] MEDS: docusate sodium 100 mg Capsule PO ×2 (09:31→18:11)
[2024-09-21] MEDS: atorvastatin 40 mg Tablet PO (09:32)
[2024-09-21] MEDS: duloxetine 30 mg Capsule PO (09:33)
[2024-09-21] MEDS: multivitamin therapeutic Tablet 1 TAB PO (09:33)
[2024-09-21] MEDS: famotidine 20 mg Tablet 40 MG PO (09:33)
[2024-09-21] MEDS: mupirocin oint 22 gm 1 APPLIC NASAL ×2 (09:34→18:14)
[2024-09-21] MEDS: calcium carb-vit d 600mg/400unit 1 Tablet 1 EACH PO ×2 (09:34→18:11)
[2024-09-21] MEDS: memantine 5 mg tablet 10 MG PO ×2 (09:43→18:10)
--- NOTE | 2024-09-21 12:40 | PM.DCS ---
Discharge Providers Date of Admission: 09/20/24 10:30 Date of Discharge: September 21, 2024 Attending Provider at Admission: Saúl Moise DO Attending Provider at Discharge: Saúl Moise DO Primary Care Provider: Sixto Paul MD Diagnoses at Discharge Discharge Diagnosis (1) S/P total knee arthroplasty: Status: Acute Reason for Visit Reason for Visit: M17.0 Physical Exam Urinary Catheter Management: Choudhury: Cath Placed During This Visit: yes, but has since been removed by the nurse Reason for Continuing Indwelling Catheter: Decision to DC Catheter Urinary Catheter Date of Insertion: 09/20/24 Urinary Catheter Time of Insertion: 07:40 Date Urinary Catheter Removed: 09/20/24 Time Urinary Catheter Discontinued: 23:20 Discharge Data Studies Completed and Pending Completed Studies During Hospitalization Category Date Time Status XR knee LT 1-2V 23263 Routine Exams 09/20/24 10:14 Completed US venous duplex lower extremity bilat [CV venous Ultrasound 09/20/24 05:55 [place] [id number]] Stat Pending at discharge Category Date Time Status Basic Metabolic Panel AM LABS Lab 09/22/24 04:00 Ordered Basic Metabolic Panel AM LABS Lab 09/23/24 04:00 Ordered Basic Metabolic Panel Routine Lab 09/21/24 12:35 Received Complete Blood Count w/Auto AM LABS Lab 09/22/24 04:00 Ordered Complete Blood Count w/Auto AM LABS Lab 09/23/24 04:00 Ordered Hemoglobin Routine Lab 09/21/24 11:00 Ordered Occult Blood Stool [Immunochemical Fecal OCB] Routine Lab 09/21/24 07:51 Uncollected Radiology Impressions Knee X-Ray 09/20/24 10:14 IMPRESSION: Postoperative findings. Laboratory Results WBC 11.25 10^3/uL (3.29-11.43) 09/21/24 04:35 RBC 2.86 10^6/uL (3.85-5.65) L 09/21/24 04:35 Hgb 9.10 g/dL (11.27-16.99) L 09/21/24 04:35 Hct 28.9 % (36-47) L 09/21/24 04:35 MCV 101.0 fl (85-98) H D 09/21/24 04:35 MCH 31.8 pg (27-33) 09/21/24 04:35 MCHC 31.5 g/dL (30-55) D 09/21/24 04:35 RDW 12.6 % (12.1-15.1) 09/21/24 04:35 Plt Count 265 10^3/cmm (157-399) 09/21/24 04:35 MPV 10.9 fL (7.4-10.4) H 09/21/24 04:35 Neut % (Auto) 81.0 % 09/21/24 04:35 Lymph % (Auto) 10.5 % 09/21/24 04:35 [place] % (Auto) 7.8 % 09/21/24 04:35 Eos % (Auto) 0.1 % 09/21/24 04:35 Baso % (Auto) 0.2 % 09/21/24 04:35 Neut # (Auto) 9.12 10^3/uL (1.8-7.7) H 09/21/24 04:35 Lymph # (Auto) 1.2 10^3/uL (0.8-4.8) 09/21/24 04:35 [place] # (Auto) 0.9 10^3/uL (0.2-0.9) 09/21/24 04:35 Eos # (Auto) 0.0 10^3/uL (0.0-0.8) 09/21/24 04:35 Baso # (Auto) 0.0 10^3/uL (0.0-0.1) 09/21/24 04:35 Nucleated RBC % (auto) 0 % 09/21/24 04:35 Nucleated RBCs # 0.0 /100WBC 09/21/24 04:35 Sodium Cancelled 09/21/24 04:35 Potassium Cancelled 09/21/24 04:35 Chloride Cancelled 09/21/24 04:35 Carbon Dioxide Cancelled 09/21/24 04:35 Anion Gap Cancelled 09/21/24 04:35 BUN Cancelled 09/21/24 04:35 Creatinine Cancelled 09/21/24 04:35 GFR Calculation Cancelled 09/21/24 04:35 Glucose Cancelled 09/21/24 04:35 Calculated Osmolality Cancelled 09/21/24 04:35 Calcium Cancelled 09/21/24 04:35 Blood Type O Positive 09/20/24 07:00 Rho(D) Type Rh positive 09/20/24 07:00 Antibody Screen Negative 09/20/24 07:00 Vitals Last Vital Signs Temp 97.9 F 09/21/24 09:36 Pulse 76 09/21/24 09:36 Resp 16 09/21/24 10:50 BP 137/60 09/21/24 09:36 Pulse Ox 97 09/21/24 09:36 O2 Del Method Room Air 09/21/24 09:36 O2 Flow Rate 2 09/20/24 21:51 Discharge Plan Discharge Patient Disposition: Home Health Service Condition: Stable Prescriptions: New oxycodone 5 mg tablet 5 mg PO Q6H PRN (Reason: pain postop) 7 Days Qty: 28 0RF Eliquis 2.5 mg tablet 2.5 mg PO BID 14 Days Qty: 28 0RF methocarbamol 500 mg tablet 500 mg PO TID PRN (Reason: muscle spasms/pain) 14 Days Qty: 42 0RF ondansetron 4 mg tablet,disintegrating 4 mg PO Q8H PRN (Reason: nausea and vomiting) 3 Days Qty: 9 0RF Continued cyanocobalamin (vitamin B-12) 1,000 mcg/mL solution 1,000 mcg SUBCUT DAILY famotidine 40 mg tablet 40 mg PO DAILY ferrous fumarate 325 mg (106 mg iron) tablet 325 mg PO DAILY gabapentin 100 mg capsule 100 mg PO TID lorazepam 1 mg tablet 1 mg PO TID PRN (Reason: Anxiety) magnesium oxide 500 mg capsule 500 mg PO DAILY memantine 10 mg tablet 10 mg PO BID albuterol sulfate 90 mcg/actuation HFA aerosol inhaler 1 inh inhalation QID carbidopa-levodopa [Sinemet] 25-100 mg tablet 1 tab PO TID carvedilol 12.5 mg tablet 12.5 mg PO ONCE Rx Instructions: must administer with a meal/food diltiazem HCl [Cardizem CD] 240 mg capsule,extended release 24hr 240 mg PO DAILY donepezil 10 mg tablet 10 mg PO DAILY duloxetine 60 mg capsule,delayed release(DR/EC) 60 mg PO DAILY fluticasone furoate 27.5 mcg/actuation spray,suspension 1 spray intranasal DAILY Rx Instructions: into each nostril lisinopril 40 mg tablet 40 mg PO DAILY mirtazapine 15 mg tablet 15 mg PO DAILY multivitamin Tablet 1 tab PO DAILY pantoprazole 40 mg tablet,delayed release (DR/EC) 40 mg PO DAILY rosuvastatin 10 mg tablet 10 mg PO DAILY Held tramadol 50 mg tablet 50 mg PO DAILY Hold Instructions: Resume on 10/05/24. Discharge Orders: Discharge Order (Routine); Ordered 09/21/24 Ordered By: Saúl Moise Referrals: [facility] [Outside] Saúl Moise DO [Physician] - 10/05/24 8:00 am Discharge Diet: Regular Discharge Activity: Limit activity as instructed and Use walker/crutches as instructed Patient Instructions: Acute Wound Care (DC), Precautions after Total Joint Replacement Surgery (GEN), Joint Replacement Surgery (GEN), Total Knee Replacement (GEN), Opioid Safety, Post Anesthesia Care Activity Restrictions/Additional Instructions: Orthopedic discharge instructions: Ivett Dressing--Keep dressing on and dry. After 3 days you can remove Danny bandage of the dressing and shower. disconnect battery pack when showering. Ivett dressing will stay on until follow up appt in 2 weeks. The battery pack for the dressing will at 5-7 days. Battery pack can be removed and discarded once batteries . Patient may weight-bear as tolerate to the operative extremity Utilize walker as needed Encourage knee range of motion Ice and elevate as needed for pain and swelling Take pain medication as prescribed Take antinausea medication as needed Pain medication can cause constipation. take [id number] stool softeners and or MiraLAX. Take prescribed Eliquis twice daily for the next 14 days for blood clot prevention May supplement for pain with Tylenol [id number] as needed(1000 mg every 8 hours-do not exceed more than 3000mg in 24-hour period) No baths or soaks Follow-up in the orthopedic office in 2 weeks Contact the office for any questions or concerns Coding Level of Care Code Acute Code for Chg Fwd Diagnoses S/P total knee arthroplasty Z96.659
[2024-09-21 13:03] LABS: Anion Gap 14.1 (5-19); Blood Urea Nitrogen 36 mg/dL (8-23); Calcium 8.3 mg/dL (8.5-10.5); Carbon Dioxide 26 mmol/L (22-29); Chloride 104 mmol/L (98-107); Creatinine Clr Calc Pharmacy 31.6141; Glucose 111 mg/dL (65-115); Osmolality Calculated 299 mOsm/kg (285-295); Potassium 4.1 mmol/L (3.5-5.1); Sodium 140 mmol/L (136-145)
--- NOTE | 2024-09-21 13:44 | P.PN_ITS ---
Subjective 2 Subjective: This morning working with physical therapy getting up to the chair. States it was a bit rough , although she also has not been walking over the last couple of months. She has been having some pain in her left knee for which she has been needing some pain medication. She has not noticed any outward bleeding. Stools are somewhat dark, but may be due to the iron she takes. Has not noticed red blood in stool or other outward bleeding. Vitals/I&O/Wt Last Vital Signs Temp 97.9 F 09/21/24 09:36 Pulse 76 09/21/24 09:36 Resp 16 09/21/24 10:50 BP 137/60 09/21/24 09:36 Pulse Ox 97 09/21/24 09:36 O2 Del Method Room Air 09/21/24 09:36 O2 Flow Rate 2 09/20/24 21:51 09/20/24 09/21/24 09/21/24 22:59 06:59 14:59 Intake Total 50 / 2500 1300 / 3800 Output Total 1300 / 1350 Balance -1250 / 1150 1300 / 2450 Weight last 48 hrs Weight 90.718 kg Physical Exam 2 Const: COMMON NORMALS: patient oriented x3 and alert GENERAL APPEARANCE: c ooperative ORIENTATION/CONSCIOUSNESS: Yes awake HENMT: COMMON NORMALS: oropharynx normal Neck/C-Spine: COMMON NORMALS: no JVD Resp: COMMON NORMALS: normal respiratory effort and clear to auscultation bilaterally AUSCULTATION: clear to auscultation bilaterally Cardio: COMMON NORMALS: no JVD, regular rhythm, S1 normal heart sound present, S2 normal heart sound present and No murmurs present (Cardio) RHYTHM: regular rhythm HEART SOUNDS: S1 normal heart sound present and S2 normal heart sound present GI: COMMON NORMALS: Normal to inspection, nondistended, normoactive bowel sounds present, Soft to palpation and non-tender PALPATION: Yes Soft to palpation Extremity: COMMON NORMALS: no joint enlargement and no pedal edema N ARRATIVE EXTREMITY EXAM: Left leg in postoperative dressing. Left knee minimal wound VAC. Cold pack. OTHER: She is moving her left foot. Neuro: COMMON NORMALS: patient oriented x3 and moves all extremities S ENSORIUM/ORIENTATION: Yes alert Skin: COMMON NORMALS: no rashes or lesions noted GENERAL SKIN EXAM: no rashes or lesions noted Urinary Catheter Management: Choudhury: Cath Placed During This Visit: yes, but has since been removed by the nurse Reason for Continuing Indwelling Catheter: Decision to DC Catheter Urinary Catheter Date of Insertion: 09/20/24 Urinary Catheter Time of Insertion: 07:40 Date Urinary Catheter Removed: 09/20/24 Time Urinary Catheter Discontinued: 23:20 Data 09/21/24 13:45 09/21/24 12:35 A&P Assessment and plan (1) S/P total knee arthroplasty: Getting up with physical therapy today, with some minimal assistance getting to the chair with a walker. Plans for return home with home health. Reviewed orthopedic note. Preoperative decrease in hemoglobin, down to 9.1 from 12.1 on admission. At least in part as per discussion with her and orthopedics may have been secondary to some dehydration with falsely elevated hemoglobin on presentation compared to prior hemoglobin reviewed which was 10.6 back in August. She has been receiving some IV fluids, as she is tolerating oral intake, fluids discontinued. Discussed with her she additionally is on some medications that do increase her risk of bleeding, has not been continued on tramadol, duloxetine dose adjusted down to 30 mg from 60, with Tramadol contributing to risk of bleeding particularly combined with SSRI. She and her verbalized understanding, will be avoiding tramadol. She states it has not really worked very well for her anyway. Discussed with orthopedic surgery. Has not had signs of large bleeding into her left thigh. Monitor for risk of bleeding with DVT prophylaxis with Eliquis. Reassess blood counts. Repeat hemoglobin requested, recheck obtained, on reassessment hemoglobin down to 7.8. Further discussed with her . She does state that during prior surgery she ended up needing a unit of blood transfusion after hip pinning. She has had some dark stools but with iron, this has not worsened. No evelin bleeding. Hemoccult has been requested. Discussed with her further option of continuing with the plan of returning home. Discussed consideration of additional reassessment of blood counts tonight versus in the morning. With further decline in hemoglobin concern for possible additional blood loss being on anticoagulation for VTE prophylaxis as well, risk of acute blood loss anemia, and complications including worsening anemia, fall, injury, etc. After considering her options and discussing with her she is okay with additional reassessment of blood count in the morning, as well as RBC transfusion in case of further decline. Has had some constipation and is at risk of constipation with pain medication. Discussed with her bowel regimen and added MiraLAX. Continue symptoms primary. Continue acetaminophen, oxycodone as needed for pain. IV Dilaudid as needed for severe breakthrough pain. Plan History of anemia: As above. Repeat blood counts. Would not resume tramadol. Reassess blood counts. Continue iron supplementation. CKD: Reviewed chemistry, BUN, creatinine. Creatinine 1.6 appears to be close to recent baseline. Repeat chemistry in the morning. Avoid nephrotoxins. Parkinson's disease: Resume carbidopa-levodopa which she takes 3 times daily. HTN: Monitor blood pressures postoperatively. Resume diltiazem. Reassess blood pressure, having been receiving IV fluids once she is resuming oral intake stop IV fluids. Reassess blood pressure prior to resumption of lisinopril. HLD: Continue statin TIMOTHY: Respiratory for consultation for nightly CPAP with 2 L of oxygen. 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 History of colon cancer at age 28 with partial bowel resection. Has been getting colonoscopies more frequently with finding of recurrent polyps. PDMP PDMP Reviewed: Not Reviewed Attestations 2 Medical Necessity Statement*: Continue hospitalization for additional assessment of acute anemia perioperatively after left knee replacement, on Eliquis for VTE prophylaxis, previously on tramadol, duloxetine, with history of bowel resection, history of recurrent colonic polyps. and High MDM includes amount and/or complexity of data reviewed/ordered [ previous or external records, resulted lab(s)/test(s), ordered lab(s)/test(s) and other healthcare professional discussion] and described risk of complication, morbidity or mortality of management as documented Diagnoses S/P total knee arthroplasty Z96.659
[2024-09-21] MEDS: acetaminophen 325 mg Tablet 650 MG PO ×2 (16:18→21:54)
--- NOTE | 2024-09-21 16:50 | P.PN_ITS ---
Subjective 2 Subjective: Patient seen and examined at noon today doing well progressing well with therapy. Drop in hemoglobin today talk with internal medicine and doing a recheck prior to discharge. During the recheck patient did have drop in hemoglobin again and at this point time recommending observation for additional night Vitals/I&O/Wt Last Vital Signs Temp 98.8 F 09/22/24 10:55 Pulse 88 09/22/24 10:55 Resp 17 09/22/24 10:55 BP 176/65 09/22/24 10:55 Pulse Ox 93 09/22/24 10:55 O2 Del Method Room Air 09/22/24 04:00 O2 Flow Rate 2 09/20/24 21:51 Physical Exam 2 Narrative: Left knee examination: Dressing on in place, clean dry and intact. No evidence of saturation. Patient has normal postoperative swelling and tenderness to palpation to the knee. Compartments are soft compressible,'s calf soft and nontender. Sensations intact to light touch distally. Distal pulses are palpable. Patient is able to wiggle toes as well as plantarflex and dorsiflex ankle. Urinary Catheter Management: Choudhury: Cath Placed During This Visit: yes, but has since been removed by the nurse Reason for Continuing Indwelling Catheter: Decision to DC Catheter Urinary Catheter Date of Insertion: 09/20/24 Urinary Catheter Time of Insertion: 07:40 Date Urinary Catheter Removed: 09/20/24 Time Urinary Catheter Discontinued: 23:20 Data 09/22/24 04:54 09/22/24 04:54 Other Labs: 9.1 hgb in am and downtrended to 7.8 hgb Xray Ortho: Radiologist's impression: Ordering Provider/Ordering MD: Saúl Moise Date of Service: 09/20/24 Procedure(s): XR knee LT 1-2V 47494 Accession Number(s): [id number] Report Number: [id number] PROCEDURE INFORMATION: Exam: XR Left Knee Exam date and time: 09/20/2024 11:32 AM Age: 79 years old Clinical indication: Device placement; Joint replacement hardware; Prior surgery; Surgery date: Post-operative (0-2 days); Surgery type: L tka, ; additional info: Post L tka, do in pacu TECHNIQUE: Imaging protocol: Radiologic exam of the left knee. Views: 1 or 2 views. COMPARISON: CT knee LT [facility] [address] 09/02/2024 3:12 PM FINDINGS: Bones/joints: Total knee replacement. Anatomic alignment. Bone and metal are intact. Soft tissues: Soft tissue swelling. Periarticular and intra-articular gas. Anterior skin patricia. XR/XR knee LT 1-2V 25058 IMPRESSION: Postoperative findings. A&P Assessment and plan (1) S/P total knee arthroplasty: (2) Postoperative anemia: Plan AM labs reviewed?downtrending hemoglobin on recheck later today down to 7.8 as a result internal medicine recommending additional night stay for observation and recheck hemoglobin in the morning as patient is on anticoagulant DVT prophylaxis therapy Internal medicine on board appreciate their medical management and assistance Postoperative x-rays reviewed stable prosthesis Ice and elevate as needed for pain and swelling PT/OT Range of motion of the knee as tolerated Weight-bear as tolerated to operative extremity Pain control DVT prophylaxis Resume diet Stable from Ortho standpoint-appropriate discharge instructions and medications in patient's chart and sent to pharmacy Follow-up in 2 weeks outpatient Change dressing as needed PDMP PDMP Reviewed: Last Reviewed 09/21/24 13:38 EDT by Saúl Moise DO Attcourtney 2 Medical Necessity Statement*: Ongoing care status post left total knee arthroplasty with acute postoperative anemia recommending observation given continued downtrend of Coding Level of Care Code Acute Code for Chg Fwd Diagnoses S/P total knee arthroplasty Z96.659 Postoperative anemia D64.9 Time Spent (min) 25
[2024-09-21] MEDS: methocarbamol 500 mg Tablet PO (17:13)
[2024-09-21] MEDS: polyethylene glycol 3350 Pkt 17 gm PO (18:09)
[2024-09-21] MEDS: mirtazapine 15 mg Tablet PO (18:10)
[2024-09-21] MEDS: dilTIAZem ER (24HR) 240 mg Capsule PO (18:10)
[2024-09-22] VITALS (8 sets, daily range): BP systolic 154–182; BP diastolic 65–96; PULSE 80–88; RESP 16–18; TEMP 37–37.1; O2SAT 93–97
[2024-09-22] MEDS: oxyCODONE 5 mg IR Tab/Cap PO ×3 (00:55→09:09)
[2024-09-22 05:21] LABS: Basophils # 0.1 10^3/uL (0.0-0.1); Basophils % 0.6 %; Eosinophils # 0.1 10^3/uL (0.0-0.8); Eosinophils % 1.1 %; Hematocrit 25.5 % (36-47); Lymphocytes # 1.9 10^3/uL (0.8-4.8); Lymphocytes % 22.3 %; Mean Corpuscular HGB Conc 31.8 g/dL (30-55); Mean Corpuscular Volume 100.8 fl (85-98); Mean Platelet Volume 10.2 fL (7.4-10.4); Monocytes # 1.2 10^3/uL (0.2-0.9); Monocytes % 13.9 %; Neutrophils % 61.6 %; Nucleated Red Blood Cells % 0 %; Platelet Count 178 10^3/cmm (157-399); Red Blood Count 2.53 10^6/uL (3.85-5.65); Red Cell Distribution Width 13.2 % (12.1-15.1); White Blood Count 8.28 10^3/uL (3.29-11.43)
[2024-09-22 05:40] LABS: Anion Gap 14.2 (5-19); Blood Urea Nitrogen 28 mg/dL (8-23); Calcium 8.7 mg/dL (8.5-10.5); Carbon Dioxide 27 mmol/L (22-29); Chloride 102 mmol/L (98-107); Creatinine Clr Calc Pharmacy 38.9097; Glucose 101 mg/dL (65-115); Osmolality Calculated 294 mOsm/kg (285-295); Potassium 4.2 mmol/L (3.5-5.1); Sodium 139 mmol/L (136-145)
--- NOTE | 2024-09-22 08:12 | P.PN_ITS ---
Subjective 2 Subjective: He reports he is feeling well today and is ready to go home. Vitals/I&O/Wt Last Vital Signs Temp 98.6 F 09/22/24 04:00 Pulse 80 09/22/24 04:30 Resp 16 09/22/24 04:57 BP 154/70 09/22/24 04:30 Pulse Ox 97 09/22/24 04:00 O2 Del Method Room Air 09/22/24 04:00 O2 Flow Rate 2 09/20/24 21:51 Physical Exam 2 Narrative: Accompanied by at bedside. Const: COMMON NORMALS: patient oriented x3 and alert GENERAL APPEARANCE: c ooperative ORIENTATION/CONSCIOUSNESS: Yes awake HENMT: COMMON NORMALS: oropharynx normal Neck/C-Spine: COMMON NORMALS: no JVD Resp: COMMON NORMALS: normal respiratory effort and clear to auscultation bilaterally AUSCULTATION: clear to auscultation bilaterally Cardio: COMMON NORMALS: no JVD, regular rhythm, S1 normal heart sound present, S2 normal heart sound present and No murmurs present (Cardio) RHYTHM: regular rhythm HEART SOUNDS: S1 normal heart sound present and S2 normal heart sound present GI: COMMON NORMALS: Normal to inspection, nondistended, normoactive bowel sounds present, Soft to palpation and non-tender PALPATION: Yes Soft to palpation Extremity: COMMON NORMALS: no joint enlargement and no pedal edema N ARRATIVE EXTREMITY EXAM: Left leg in postoperative dressing. Without worsening swelling. Moving her left foot. Neuro: COMMON NORMALS: patient oriented x3 and moves all extremities S ENSORIUM/ORIENTATION: Yes alert Skin: COMMON NORMALS: no rashes or lesions noted GENERAL SKIN EXAM: no rashes or lesions noted Urinary Catheter Management: Choudhury: Cath Placed During This Visit: yes, but has since been removed by the nurse Reason for Continuing Indwelling Catheter: Decision to DC Catheter Urinary Catheter Date of Insertion: 09/20/24 Urinary Catheter Time of Insertion: 07:40 Date Urinary Catheter Removed: 09/20/24 Time Urinary Catheter Discontinued: 23:20 Data 09/22/24 04:54 09/22/24 04:54 A&P Assessment and plan (1) S/P total knee arthroplasty: She reports he is feeling well today. Reviewed hemoglobin, platelets. Hemoglobin stabilized and today is 8.1. No worsening leg swelling. She would like to return home. Discussed with her to follow-up with primary provider for reassessment and repeat blood counts. She knows to seek medical attention in case of starting to feel faint, weaker, or seeing any bleeding or other concerning symptoms. She has been working with her incentive spirometer. Encouraged her to continue. She has MiraLAX to continue bowel regimen at home. Discontinue tramadol at discharge. Continue acetaminophen, oxycodone as needed for pain. Reviewed orthopedic note. Discussed with nursing. Plan History of anemia: As above. Repeat blood counts. Would not resume tramadol. Reassess blood counts. Continue iron supplementation. Follow-up with primary provider for reassessment. CKD: Reviewed chemistry, BUN, creatinine. Creatinine 1.6 appears to be close to recent baseline. Repeat chemistry in the morning. Avoid nephrotoxins. Parkinson's disease: Resume carbidopa-levodopa which she takes 3 times daily. HTN: Had been hypertensive overnight and this morning. Resume lisinopril this morning. Monitor blood pressures postoperatively. Resume diltiazem. Reassess blood pressure, having been receiving IV fluids once she is resuming oral intake stop IV fluids. Reassess blood pressure prior to resumption of lisinopril. HLD: Continue statin TIMOTHY: Respiratory for consultation for nightly CPAP with 2 L of oxygen. 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 History of colon cancer at age 28 with partial bowel resection. Has been getting colonoscopies more frequently with finding of recurrent polyps. PDMP PDMP Reviewed: Not Reviewed Attestations 2 Medical Necessity Statement*: Discharging home. Diagnoses S/P total knee arthroplasty Z96.659
[2024-09-22] MEDS: calcium carb-vit d 600mg/400unit 1 Tablet 1 EACH PO (08:46)
[2024-09-22] MEDS: atorvastatin 40 mg Tablet PO (08:46)
[2024-09-22] MEDS: multivitamin therapeutic Tablet 1 TAB PO (08:46)
[2024-09-22] MEDS: famotidine 20 mg Tablet 40 MG PO (08:47)
[2024-09-22] MEDS: pantoprazole DR 40 mg Tablet PO (08:47)
[2024-09-22] MEDS: lisinopril 20 mg Tablet 40 MG PO (08:47)
[2024-09-22] MEDS: donepezil 5 MG Tablet 10 MG PO (08:47)
[2024-09-22] MEDS: iron polysaccharide complex 150 mg Capsule PO (08:48)
[2024-09-22] MEDS: ferrous sulfate EC 325 mg Tablet PO (08:48)
[2024-09-22] MEDS: docusate sodium 100 mg Capsule PO (08:48)
[2024-09-22] MEDS: duloxetine 30 mg Capsule PO (08:48)
[2024-09-22] MEDS: mupirocin oint 22 gm 1 APPLIC NASAL (08:49)
[2024-09-22] MEDS: chlorhexidine gluconate 0.12% Btl 473 mL 30 ML MUCOUS MEM (08:49)
[2024-09-22] MEDS: apixaban 5 mg Tablet 2.5 MG PO (08:49)
[2024-09-22] MEDS: polyethylene glycol 3350 Pkt 17 gm PO (08:50)
[2024-09-22] MEDS: gabapentin 100 mg Capsule PO (08:54)
[2024-09-22] MEDS: memantine 5 mg tablet 10 MG PO (08:55)
[2024-09-22] MEDS: carbidopa-levodopa 25-100mg Tablet 1 EACH PO (08:56)
[2024-09-22] MEDS: carvedilol 12.5 mg Tablet PO (11:08)
--- NOTE | 2024-09-22 12:00 | PM.DCS ---
Discharge Providers Date of Admission: 09/21/24 16:42 Date of Discharge: September 22, 2024 Attending Provider at Admission: Saúl Moise DO Attending Provider at Discharge: Saúl Moise DO Consults: Dr. Vega?hospitalist Primary Care Provider: Sixto Paul MD Diagnoses at Discharge Discharge Diagnosis (1) S/P total knee arthroplasty: Status: Acute (2) Postoperative anemia: Status: Acute Reason for Visit Reason for Visit: M17.0 Brief History: Status post left total knee arthroplasty?Sher robotic assisted Hospital Course Hospital Course Patient presented to the preoperative holding area with plan for left total knee arthroplasty after patient has been worked up in the outpatient setting for failed conservative treatment of left knee degenerative joint disease. Once cleared by anesthesia for surgery patient subsequently was taken back to the operative suite underwent anesthesia per anesthesia department and then subsequently underwent a left total knee arthroplasty. Procedure was performed without any complications patient was taken to PACU in stable condition patient recovered well in PACU and then was admitted to the floor postoperatively internal medicine was consulted and on board for medical management and assistance with care. Patient received appropriate PT/OT, postoperative antibiotics, pain control, postoperative DVT prophylaxis. Elevation and ice. Patient encouraged for knee range of motion allowed weightbearing as tolerated to the operative lower extremity. Dressing was changed as needed, labs were monitored daily. Patient recovered well postoperatively and worked well and progressed well with therapy. Patient's hemoglobin was monitored did have continued downtrend and on postoperative day 1 down to 7.8 as a result per the hospitalist recommendations recommend continued observation for an additional night stay the recheck the following morning had increased and patient was clinically improved and deemed stable for discharge from internal medicine standpoint. It was determined on postoperative day [ 2] the patient was stable for discharge from an orthopedic standpoint and medicine. Patient was comfortable with discharge and plan was discharged home. Patient received appropriate discharge instructions as well as pain medication and DVT prophylaxis postoperatively. Given appropriate instructions for dressing management. Patient will follow-up with Dr. Moise/orthopedics in the office in 2 weeks. All questions answered. Understand if there is any issues questions or concerns and contact the office. Physical Exam Narrative: Patient discharged prior to orthopedic evaluation please refer to previous exam on 09/22/2023 listed below otherwise refer to internal medicine provider progress note for detailed examination on day of discharge. 09/21/2024 Left knee examination: Dressing on in place, clean dry and intact. No evidence of saturation. Patient has normal postoperative swelling and tenderness to palpation to the knee. Compartments are soft compressible,'s calf soft and nontender. Sensations intact to light touch distally. Distal pulses are palpable. Patient is able to wiggle toes as well as plantarflex and dorsiflex ankle. Urinary Catheter Management: Choudhury: Cath Placed During This Visit: yes, but has since been removed by the nurse Reason for Continuing Indwelling Catheter: Decision to DC Catheter Urinary Catheter Date of Insertion: 09/20/24 Urinary Catheter Time of Insertion: 07:40 Date Urinary Catheter Removed: 09/20/24 Time Urinary Catheter Discontinued: 23:20 Discharge Data Studies Completed and Pending Completed Studies During Hospitalization Category Date Time Status XR knee LT 1-2V 72703 Routine Exams 09/20/24 10:14 Completed US venous duplex lower extremity bilat [CV venous Ultrasound 09/20/24 05:55 [place] [id number]] Stat Radiology Impressions Knee X-Ray 09/20/24 10:14 IMPRESSION: Postoperative findings. Laboratory Results WBC 8.28 10^3/uL (3.29-11.43) 09/22/24 04:54 RBC 2.53 10^6/uL (3.85-5.65) L 09/22/24 04:54 Hgb 8.10 g/dL (11.27-16.99) L 09/22/24 04:54 Hct 25.5 % (36-47) L 09/22/24 04:54 MCV 100.8 fl (85-98) H 09/22/24 04:54 MCH 32.0 pg (27-33) 09/22/24 04:54 MCHC 31.8 g/dL (30-55) 09/22/24 04:54 RDW 13.2 % (12.1-15.1) 09/22/24 04:54 Plt Count 178 10^3/cmm (157-399) D 09/22/24 04:54 MPV 10.2 fL (7.4-10.4) 09/22/24 04:54 Neut % (Auto) 61.6 % 09/22/24 04:54 Lymph % (Auto) 22.3 % 09/22/24 04:54 [place] % (Auto) 13.9 % 09/22/24 04:54 Eos % (Auto) 1.1 % 09/22/24 04:54 Baso % (Auto) 0.6 % 09/22/24 04:54 Neut # (Auto) 5.10 10^3/uL (1.8-7.7) 09/22/24 04:54 Lymph # (Auto) 1.9 10^3/uL (0.8-4.8) 09/22/24 04:54 [place] # (Auto) 1.2 10^3/uL (0.2-0.9) H 09/22/24 04:54 Eos # (Auto) 0.1 10^3/uL (0.0-0.8) 09/22/24 04:54 Baso # (Auto) 0.1 10^3/uL (0.0-0.1) 09/22/24 04:54 Nucleated RBC % (auto) 0 % 09/22/24 04:54 Nucleated RBCs # 0.0 /100WBC 09/22/24 04:54 Sodium 139 mmol/L (136-145) 09/22/24 04:54 Potassium 4.2 mmol/L (3.5-5.1) 09/22/24 04:54 Chloride 102 mmol/L (98-107) 09/22/24 04:54 Carbon Dioxide 27 mmol/L (22-29) 09/22/24 04:54 Anion Gap 14.2 (5-19) 09/22/24 04:54 BUN 28 mg/dL (8-23) H 09/22/24 04:54 Creatinine 1.3 mg/dL (0.5-0.9) H 09/22/24 04:54 GFR Calculation Not Reportable 09/22/24 04:54 Glucose 101 mg/dL (65-115) 09/22/24 04:54 Calculated Osmolality 294 mOsm/kg (285-295) 09/22/24 04:54 Calcium 8.7 mg/dL (8.5-10.5) 09/22/24 04:54 Blood Type O Positive 09/20/24 07:00 Rho(D) Type Rh positive 09/20/24 07:00 Antibody Screen Negative 09/20/24 07:00 Crossmatch See Detail 09/20/24 07:00 Vitals Last Vital Signs Temp 98.8 F 09/22/24 10:55 Pulse 88 09/22/24 10:55 Resp 17 09/22/24 10:55 BP 176/65 09/22/24 10:55 Pulse Ox 93 09/22/24 10:55 O2 Del Method Room Air 09/22/24 04:00 O2 Flow Rate 2 09/20/24 21:51 Discharge Plan Discharge Patient Disposition: Home Health Service Condition: Stable Prescriptions: New Eliquis 2.5 mg tablet 2.5 mg PO BID 14 Days Qty: 28 0RF methocarbamol 500 mg tablet 500 mg PO TID PRN (Reason: muscle spasms/pain) 14 Days Qty: 42 0RF oxycodone 5 mg tablet 5 mg PO Q6H PRN (Reason: pain postop) 7 Days Qty: 28 0RF Continued cyanocobalamin (vitamin B-12) 1,000 mcg/mL solution 1,000 mcg SUBCUT DAILY famotidine 40 mg tablet 40 mg PO DAILY ferrous fumarate 325 mg (106 mg iron) tablet 325 mg PO DAILY gabapentin 100 mg capsule 100 mg PO TID lorazepam 1 mg tablet 1 mg PO TID PRN (Reason: Anxiety) magnesium oxide 500 mg capsule 500 mg PO DAILY memantine 10 mg tablet 10 mg PO BID albuterol sulfate 90 mcg/actuation HFA aerosol inhaler 1 inh inhalation QID carbidopa-levodopa [Sinemet] 25-100 mg tablet 1 tab PO TID carvedilol 12.5 mg tablet 12.5 mg PO ONCE Rx Instructions: must administer with a meal/food diltiazem HCl [Cardizem CD] 240 mg capsule,extended release 24hr 240 mg PO DAILY donepezil 10 mg tablet 10 mg PO DAILY duloxetine 60 mg capsule,delayed release(DR/EC) 60 mg PO DAILY fluticasone furoate 27.5 mcg/actuation spray,suspension 1 spray intranasal DAILY Rx Instructions: into each nostril lisinopril 40 mg tablet 40 mg PO DAILY mirtazapine 15 mg tablet 15 mg PO DAILY multivitamin Tablet 1 tab PO DAILY pantoprazole 40 mg tablet,delayed release (DR/EC) 40 mg PO DAILY rosuvastatin 10 mg tablet 10 mg PO DAILY Discontinued tramadol 50 mg tablet 50 mg PO DAILY Discharge Orders: Discharge Order (Routine); Ordered 09/21/24 Ordered By: Saúl Moise Referrals: [facility] [Outside] Sixto Paul MD [Primary Care Provider] - 4-7 days Saúl Moise DO [Physician] - 10/05/24 8:00 am Discharge Diet: Regular Discharge Activity: Limit activity as instructed and Use walker/crutches as instructed Patient Instructions: Apixaban (By mouth) (Eliquis), Acute Wound Care (DC), Precautions after Total Joint Replacement Surgery (GEN), Joint Replacement Surgery (GEN), Total Knee Replacement (GEN), Opioid Safety, Post Anesthesia Care Activity Restrictions/Additional Instructions: Orthopedic discharge instructions: Ivett Dressing--Keep dressing on and dry. After 3 days you can remove Danny bandage of the dressing and shower. disconnect battery pack when showering. Ivett dressing will stay on until follow up appt in 2 weeks. The battery pack for the dressing will at 5-7 days. Battery pack can be removed and discarded once batteries . Patient may weight-bear as tolerate to the operative extremity Utilize walker as needed Encourage knee range of motion Ice and elevate as needed for pain and swelling Take pain medication as prescribed Take antinausea medication as needed Pain medication can cause constipation. take fyvo-amj-wrpsmim stool softeners and or MiraLAX. Take prescribed Eliquis twice daily for the next 14 days for blood clot prevention May supplement for pain with Tylenol kkme-bed-vdkwitz as needed(1000 mg every 8 hours-do not exceed more than 3000mg in 24-hour period) No baths or soaks Follow-up in the orthopedic office in 2 weeks Contact the office for any questions or concerns Follow up with your primary provider for reassessment of anemia. If you notice any bloody stools or start feeling faint, fatiguable or getting weak or short of breath with exertion, seek mediacl attention. Do not continue Tramadol as discussed due to increased risk of bleeding with this medication particularly combined with serotonin reuptake inhibitor antidepressants like the ones you are on. Please have your primary provider recheck your blood counts. Please have your primary provider also reassess your kidney function. Avoid any NSAIDs like ibuprofen, Aleve, etc. Discharge Attestations Time Spent in Discharge Care*: less than 30 min Quality Metrics Clinical Quality Measures [ No reported AMI, CVA or VTE this stay] Coding Level of Care Code Acute Code for Chg Fwd Diagnoses S/P total knee arthroplasty Z96.659 Postoperative anemia D64.9
== END 2024-09-22 11:15 | disposition home health service (06) | DRG 983 ==
LOC: OBGYN 10:49
PROVIDERS: Internal Medicine; Physician Assistant; Admitting Provider Student in an Organized Health Care Education/Training Program; PCP Internal Medicine; Visit Provider Student in an Organized Health Care Education/Training Program
PROC: 8E0Y0CZ Robotic Assisted Procedure of Lower Extremity, Open Approach (ICD-10-PCS; CPT 27447; principal; 2024-09-20 07:00)
DX: D64.89 Other specified anemias (principal); M17.12 Unilateral primary osteoarthritis, left knee; I12.9 Hypertensive chronic kidney disease with stage 1 through stage 4 chronic kidney disease, or unspecified chronic kidney disease; N18.9 Chronic kidney disease, unspecified; E78.5 Hyperlipidemia, unspecified; G47.33 Obstructive sleep apnea (adult) (pediatric); G20.A1 Parkinson's disease without dyskinesia, without mention of fluctuations; Z86.718 Personal history of other venous thrombosis and embolism; Z95.0 Presence of cardiac pacemaker; Z85.038 Personal history of other malignant neoplasm of large intestine; Z90.49 Acquired absence of other specified parts of digestive tract
CPT/HCPCS: 36415; 51702; 73560; 80048; 85018; 85025; 86850; 86900; 86920; 93970; 97110; 97116; 97161; 97165; 97530; 97535; A4216; C1713; C1776; G0378; J0131; J0171; J0690; J1100; J1171; J1885; J2250; J2704; J2795; J3370; J7030; J7120; J9999; L8699

== ENCOUNTER → 2024-10-05 08:04 | Outpatient (BNVA) | payer MEDICARE, OTHER, SELFPAY | PROVIDERS: PCP Internal Medicine; Visit Provider Physician Assistant | DX: Z96.652 Presence of left artificial knee joint (principal) | CPT/HCPCS: 73560; 73565; 99024 ==

== ENCOUNTER → 2024-11-24 09:59 | Outpatient (BNVA) | payer MEDICARE, OTHER, SELFPAY | PROVIDERS: PCP Internal Medicine; Visit Provider Student in an Organized Health Care Education/Training Program | DX: M17.0 Bilateral primary osteoarthritis of knee (principal); Z96.652 Presence of left artificial knee joint | CPT/HCPCS: 73560; 73565; 99214 ==

== ENCOUNTER 2024-12-01 12:01 | Outpatient (CLI) | payer MEDICARE, OTHER, SELFPAY ==
--- NOTE | 2024-12-01 12:30 | CT_ITS ---
WS: [id number] CT RIGHT KNEE, NONCONTRAST [facility] TECHNIQUE: Noncontrast CT of the RIGHT knee to include the RIGHT hip and ankle. CLINICAL INFORMATION: RIGHT TOTAL KNEE ARTHROPLASTY DLP: 1021.[address] scans at [facility] use at least one of these dose optimization techniques: automated exposure control; mA and/or kV adjustment per patient size (includes targeted exams where dose is matched to clinical indication); or iterative reconstruction. FINDINGS: Osteopenia. Screw fixation RIGHT sacroiliac joint. Advanced tricompartmental arthritis RIGHT knee. Large suprapatellar effusion. Hypertrophic patella. Subchondral cystic change involving the medial tibial plateau with sclerosis. Sclerotic changes involving the medial femoral condyle. Postoperative changes LEFT TKA. Sigmoid constipation. CT/CT knee RT [facility] [id number] IMPRESSION: Images obtained for preoperative purposes.
== END 2024-12-01 12:02 | disposition home or self-care (01) ==
PROVIDERS: PCP Internal Medicine; Visit Provider Student in an Organized Health Care Education/Training Program
DX: M17.0 Bilateral primary osteoarthritis of knee (principal); M85.88 Other specified disorders of bone density and structure, other site; K59.09 Other constipation; Z96.651 Presence of right artificial knee joint
CPT/HCPCS: 73700

== ENCOUNTER → 2024-12-21 15:13 | Outpatient (BNVA) | payer MEDICARE, OTHER, SELFPAY | PROVIDERS: PCP Internal Medicine; Visit Provider Physician Assistant | DX: Z01.818 Encounter for other preprocedural examination (principal) | CPT/HCPCS: 36415; 80053; 81001; 85025 ==

== ENCOUNTER 2024-12-27 09:23 | Observation (INO) | payer MEDICARE, OTHER, SELFPAY ==
[2024-12-27] VITALS (23 sets, daily range): BP systolic 111–179; BP diastolic 64–91; PULSE 60–88; RESP 13–19; TEMP 36.1–37.4; O2SAT 93–100; BMI 35.0
[2024-12-27] MEDS: sodium chloride 0.9% 1,000 ML 30 ML IV (06:43)
[2024-12-27 06:45] LABS: Basophils # 0.1 10^3/uL (0.0-0.1); Basophils % 0.7 %; Eosinophils # 0.3 10^3/uL (0.0-0.8); Eosinophils % 4.2 %; Hematocrit 39.8 % (36-47); Lymphocytes # 1.9 10^3/uL (0.8-4.8); Lymphocytes % 22.8 %; Mean Corpuscular HGB Conc 32.2 g/dL (30-55); Mean Corpuscular Hemoglobin 30.8 pg (27-33); Mean Corpuscular Volume 95.9 fl (85-98); Mean Platelet Volume 10.3 fL (7.4-10.4); Monocytes # 0.8 10^3/uL (0.2-0.9); Monocytes % 9.7 %; Neutrophils # 5.05 10^3/uL (1.8-7.7); Neutrophils % 62.4 %; Nucleated Red Blood Cells % 0 %; Platelet Count 244 10^3/cmm (157-399); Red Blood Count 4.15 10^6/uL (3.85-5.65); Red Cell Distribution Width 13.5 % (12.1-15.1); White Blood Count 8.11 10^3/uL (3.29-11.43)
[2024-12-27 07:00] LABS: Anion Gap 16.6 (5-19); Blood Urea Nitrogen 31 mg/dL (8-23); Calcium 9.7 mg/dL (8.5-10.5); Carbon Dioxide 28 mmol/L (22-29); Chloride 101 mmol/L (98-107); Creatinine Clr Calc Pharmacy 39.3185; Glucose 109 mg/dL (65-115); Osmolality Calculated 299 mOsm/kg (285-295); Potassium 4.6 mmol/L (3.5-5.1); Sodium 141 mmol/L (136-145)
--- NOTE | 2024-12-27 07:01 | P.HPUD_ITS ---
Surgery/Procedure H&P Update DATE OF PROCEDURE: December 27, 2024 DATE H&P PERFORMED: 12/21/24 H&P UPDATE INFORMATION: I have reviewed H&P completed within last 30 days, I have examined patient prior to procedure and No changes to prior documentation CHANGES TO PREVIOUS DOCUMENTATION: Patient seen evaluated she is cleared the preoperative clearance process ready proceed with surgical intervention once again reviewed her past history her pre vious blood clot was in the 60s at the age of 20 she has had no issues or on any anticoagulants since then at this point in time we talked about options she did have a clean ultrasound study back in 09/20/2024 she has been asymptomatic we will be putting her on anticoagulants postoperatively starting tomorrow at this point in time we talked about this and at this point and through shared decision making she was fine without proceeding with any further ultrasound studies here preoperatively this morning and I feel this is reasonable moving forward. She is cleared the preoperative clearance process and ready to proceed with surgical intervention today for right total knee arthroplasty. Patient understands the ins outs procedure risk benefits complication alternatives of surgery and through shared decision-making elects proceed with surgical intervention. All questions answered at this time. PREOP DIAGNOSIS: Right knee DJD PRIMARY INDICATION FOR PROCEDURE: Right knee DJD PLANNED PROCEDURE: Operation Date: 12/27/24 07:00 Proposed Procedures p Sher Robot Total Knee Arthroplasty(Right) - Saúl Moise DO
--- NOTE | 2024-12-27 07:09 | ANES.PREANE2 ---
Pre-Anesthetic Assessment Height/Weight: Height 1.63 m Weight 92.533 kg Temp Pulse Resp BP Pulse Ox O2 Del Method 97.0 F L 60 16 178/91 97 Room Air 12/27/24 06:18 12/27/24 07:01 12/27/24 07:01 12/27/24 07:01 12/27/24 07:01 12/27/24 07:01 Preop Diagnosis: Right knee DJD Operation Date: 12/27/24 07:00 Proposed Procedures p Sher Robot Total Knee Arthroplasty(Right) - Saúl Moise DO Familial anesthetic complications: None Was Beta Eliana taken within 24 hours: Yes Was Clonidine taken within 24 hours: N/A Last intake: Intake Last Liquid Date 12/26/24 Last Liquid Time 21:00 Last Solid Date 12/26/24 Last Solid Time 21:00 Social No alcohol and No tobacco Exam alert, oriented x 3, clear to auscultation bilaterally and regular rate & rhythm Airway Mallampati: Class I Dentition: full Pulmonary Sleep Apnea CV/HEM Hypertension pacemaker for bradycardia Chronic Renal Insufficiency Anesthetic Plan ASA status: 3 Anesthesia: Regional (specify below) Other: Spinal + adductor canal Risk of > 500 ml blood loss (7ml/kg in children): No Other Pertinent Information Patient had allergic response to contrast dye in CT myelogram, said she becamse paralyzed for a few minutes, but was given an antidote and improved Medications/Allergies Home Medications ?Medication ?Instructions ?Recorded ?Confirmed ?Last Taken ?Type cyanocobalamin (vitamin B-12) 1,000 mcg SUBCUT DAILY 10/11/21 12/27/24 1 Day Ago History 1,000 mcg/mL injection solution ~12/22/24 famotidine 40 mg tablet 40 mg PO DAILY 10/11/21 12/27/24 12/27/24 History ferrous fumarate 325 mg (106 mg 325 mg PO DAILY 10/11/21 12/27/24 1 Day Ago History iron) tablet ~12/22/24 memantine 10 mg tablet 10 mg PO BID 10/11/21 12/27/24 12/27/24 History albuterol sulfate 90 mcg/actuation 1 inh inhalation QID 08/11/24 12/27/24 Unknown History aerosol inhaler carbidopa 25 mg-levodopa 100 mg 2 tab PO TID 08/11/24 12/27/2412/27/25 History tablet (Sinemet) carvedilol 12.5 mg tablet 12.5 mg PO DAILY 08/11/24 12/27/24 12/27/24 History diltiazem HCl 240 mg 240 mg PO DAILY 08/11/24 12/27/24 12/27/24 History capsule,extended release 24 hr (Cardizem CD) donepezil 10 mg tablet 10 mg PO DAILY 08/11/24 12/27/24 12/27/24 History duloxetine 60 mg capsule,delayed 60 mg PO DAILY 08/11/24 12/27/24 12/27/24 History release fluticasone furoate 27.5 1 spray intranasal DAILY 08/11/24 12/27/24 1 Day Ago History mcg/actuation nasal ~12/22/24 spray,suspension lisinopril 40 mg tablet 40 mg PO DAILY 08/11/24 12/27/24 1 Day Ago History ~12/22/24 mirtazapine 15 mg tablet 15 mg PO DAILY 08/11/24 12/27/24 12/26/24 History multivitamin 1 tab PO DAILY 08/11/24 12/27/24 12/27/24 History rosuvastatin 10 mg tablet 10 mg PO DAILY 08/11/24 12/27/24 12/27/24 History acetaminophen 650 mg 1,300 mg PO Q12H 12/22/24 12/27/24 12/27/24 History tablet,extended release docusate sodium 50 mg capsule 50 mg PO DAILY 12/22/24 12/27/24 Unknown History gabapentin 100 mg capsule 600 mg PO BID 12/22/24 12/27/24 12/27/24 History lorazepam 1 mg tablet 0.5 mg PO BID PRN Anxiety 12/22/24 12/27/24 12/27/24 History magnesium oxide 500 mg capsule 400 mg PO BID 12/22/24 12/27/24 12/27/24 History pantoprazole 40 mg tablet,delayed 40 mg PO BID 12/22/24 12/27/24 12/27/24 History release polyethylene glycol 3350 17 4 g PO DAILY 12/22/24 12/27/24 Unknown History gram/dose oral powder (Miralax) Allergies Allergy/AdvReac Type Severity Reaction Status Date / Time Iodinated Contrast Media Allergy Severe ADR-Numbnes Verified 12/27/24 06:18 s Current Medications Generic Name Dose Route Start Last Admin Trade Name Deandre PRN Reason Stop Dose Admin Sodium Chloride 1,000 mls @ 30 mls/hr 12/27/24 06:00 12/27/24 06:43 Sodium Chloride 0.9% IV 12/28/24 05:59 30 mls/hr .Q24H MERLINE Administration PFSH Anesthesia Medical History Pacemaker Bradycardia Anemia DVT (deep venous thrombosis) CKD (chronic kidney disease) TIMOTHY (obstructive sleep apnea) HLD (hyperlipidemia) HTN (hypertension) Parkinson disease Social History Smoking and tobacco/nicotine status: never used tobacco/nicotine Marital status: Data Anesthesia 12/27/24 06:27 12/27/24 06:27 Short CBC 12/27/24 Range/Units 06:27 WBC 8.11 (3.29-11.43) 10^3/uL Hgb 12.80 (11.27-16.99) g/dL Hct 39.8 (36-47) % MCV 95.9 (85-98) fl Plt Count 244 (157-399) 10^3/cmm Neut % (Auto) 62.4 % Neut # (Auto) 5.05 (1.8-7.7) 10^3/uL BMP 12/27/24 06:27 Sodium 141 Potassium 4.6 Chloride 101 Carbon Dioxide 28 BUN 31 H Creatinine 1.3 H Glucose 109 Calcium 9.7
--- NOTE | 2024-12-27 07:11 | ANES.PROC ---
Anesthesia Procedures Procedure/Date: 12/27/24 Nerve Block ^: Nerve Block 1: Main Anesthesia: spinal anesthesia block Time Out Performed: Yes Consent: requested by attending/covering physician, from patient, from other, risks and benefits reviewed and patient agrees to proceed Nerve block location: adductor canal (R) Anesthesia monitors applied: pulse oximetry, EKG and BP cuff Nerve block position: supine Anesthetic Used: ropivicaine 0.5% (30 ml) and with decadron (4 mg) Ultrasound used to: recognize landmarks Nerve Stimulator Used?: No Interscalene/Femoral BLK: 4 stimuplex 21 g needle used for position and inplane approach, visualize local anesthetic spread and no vascular puncture identified Injection: neg aspiration of heme Patient Tolerated Procedure: well Complications: none Other Information: Diagnosis: R knee osteoarthritis
[2024-12-27] MEDS: ceFAZolin 2,000 MG in sodium chloride 0.9% (plus) 50 ML 100 MG IV ×3 (07:18→22:57)
[2024-12-27] MEDS: tranexamic acid 1,000 mg/10mL SDV 1000 MG IV (07:48)
[2024-12-27] MEDS: ROPivacaine 0.2% Premix 100 mL 200 MG INTRA-ARTI (08:25)
[2024-12-27] MEDS: ketorolac 30 mg/mL INJ XX (08:25)
[2024-12-27] MEDS: EPINEPHrine 1 mg/mL INJ XX (08:25)
[2024-12-27] MEDS: vancomycin 1,000 MG SDV 1000 MG XX (08:27)
--- NOTE | 2024-12-27 09:30 | W.PM.BPON ---
Date of Procedure: 12/27/2024 Surgeon: Saúl Moise DO Fire Loss Prevention Engineer(s): Aris Moise PA-C Procedure(s) performed: Right total knee arthroplasty?Sher robotic assisted Findings of the procedure(s): Patient underwent procedure as planned without issues or complications Estimated blood loss: 25 mL Specimen(s) removed: Tibia femur and patellar bone cuts removed Post-operative diagnosis: Right knee degenerative joint disease
--- NOTE | 2024-12-27 09:31 | P.OP_ITS ---
Operative Report Date of procedure: December 27, 2024 Surgeon: Saúl Moise DO Donor Relations Coordinator: Aris Moise PA-C: PA was necessary for assistance in this case with leg positioning retraction and protection of neurovascular structures as well as assistance in implantation wound closure and dressing application. Procedure: Preoperative diagnosis: Right knee degenerative joint disease Post-op diagnosis: Same Procedure done: Right total knee arthroplasty, cemented?robotic assisted Sher Implants: Dami triathlon size 4 femur CR cemented?Right Ary triathlon size? 3 tibia universal baseplate cemented Ary triathlon symmetric patella size 31 mm Dami triathlon polyethylene 9mm Surgeon: Saúl Moise DO Estimated blood?loss: 25 mL Tourniquet 66minutes IV fluids: 1600 mL Urine output: 100 mL Complications: None Condition: stable Disposition: floor Brief History: Patient is a 79-year-old female with with chronic?Right knee degenerative joint disease.? Patient has been worked up in the outpatient setting in the orthopedic office at this point time through shared decision making given? [id number] arthritis as well as failed conservative treatment, and pt would?like to proceed with a?Right total knee arthroplasty.? Through shared decision making elected to proceed with surgical intervention for?Right total knee arthroplasty.? We talked about continued conservative treatment and surgical intervention as far as the risk benefits complications alternatives surgical and nonsurgical treatment options.? At this point time understanding patient risks with surgery patient agrees to proceed with surgical intervention.? Once again? risk with surgery include but are not?limited to make it better make it worse blood clot, heart attack, stroke, on the table, infection, injury to nerves or vessels, persistent pain, arthrofibrosis, implant failure.? Understanding these risks patient agrees to proceed with surgical intervention consent was obtained in the preoperative holding area.? All questions answered. Procedure: Patient was seen and evaluated in the preoperative holding area.? Consent was reviewed and signed with patient with plan for?Right total knee arthroplasty.? All questions answered.? Correct extremity marked.? Patient seen and evaluated by the anesthesia department and once cleared for surgery was taken back to the operative suite.? Patient was placed into a supine position on the OR table.? All bony prominences were well-padded.? Patient was appropriately secured to the bed.? Patient underwent anesthesia per the anesthesia department.? Patient received spinal anesthesia and? Choudhury catheter was placed.? A nonsterile tourniquet was applied to the?Right thigh.? At this point in time a final timeout performed.? Patient received appropriate preoperative antibiotics. Next the?Right?lower extremity was then prepped and draped in standard orthopedic fashion. Esmarch tourniquet was used exsanguinate the?Right?lower extremity.? Tourniquet was insufflated to 250 mmHg. A standard anterior incision was made over midline of the knee.? Sharp scalpel excision through skin and subcutaneous tissue full-thickness skin flaps were made.? Fascia was elevated off of the extensor retinaculum was stable with medial parapatellar arthrotomy was then made.? The performed standard sequential releases..? Immediately on entry into the joint patient was found to have severe eburnated bone and tricompartmental arthritic changes noted.? With significant osteophyte formation.? Next the the patella was then stuffed and the knee was then flexed.?? Ryan was placed superiorly around the anterior aspect of the femur this was freed of synovium and I subsequently then placed by 2 femur pins to establish my femur arrays for the Sher robot.? These were then placed bicortically and? femur array was then appropriately secured with appropriate visualization.? Next attention was turned towards the tibial rays.? These were then drilled sequentially bicortically in parallel fashion and intraincisional.? I then placed my guide as well as my tibial array on in place.? This was appropriately secured and had excellent visualization with the Sher robot.? Next the tibial checkpoint as well as femur checkpoint were then placed.? At this point time I then subsequently established my head center as well as my medial?lateral malleoli as well as my checkpoints.? Next utilizing standard Sher technology I then mapped out the appropriate points and confirmation points around the femur as well as the tibia in standard fashion.? Once this was then done I then removed all osteophytes in preparation for dynamic testing.? All osteophytes were removed as well as I removed the ACL and the PCL was excised due to its significant tearing and degeneration noted.? At this point time the knee was brought into full extension and we performed our standard evaluation of our gap balancing stressing his?ligaments and extension as well as flexion appropriate adjustments were made to have appropriate gap balancing in both flexion and extension.? This plan for final cuts. We are able to correct patient's varus deformity within acceptable parameters of her ligamentous tolerances.? We get a preoperative plan evaluating our implants which was a size 4 femur and a size 3 tibia.? Next we brought in the Sher robot and sequentially made our femur cuts.? All excess bony cuts were then removed.? Finally we made our tibial cut.? Once this was done a standard PCL retractor was then placed into this position I excised the medial and?lateral meniscus.? The tibial cut was then subsequently removed all excess bony debris was removed.? I then utilized a?lamina verifying machine operator and remove the posterior osteophytes.? At this point time sized the tibia and confirmed this was a size 3.? I utilized our blunt probe to establish rotation of tibial implant.? Once this was done I then placed my tibia size 3 trial in appropriate position and then subsequently placed tibial pins to hold this into place placed trialed up to a size 9 mm poly as well as a size 4 femur which was appropriately impacted in place knee was then subsequently brought into extension. Trials were then assessed,? this was stable with varus valgus stress in extension as well as had symmetrical translation when brought into flexion demonstrating symmetrical gaps. I had excellent balance gaps in flexion and extension with varus and valgus stresses.? At this point I was satisfied with these implants these were then verified and opened on the back table size 3 tibia, size4 femur,? size 9 mm polythickness.? We did confirm appropriate gap balancing and stresses as well as alignment utilizing? Sher and were satisfied with this plan.? ?At this point time with my trials in place I then towel clip the patella everted this made appropriate measurements subsequently utilizing freehand technique performed by patellar resurfacing this was confirmed to be appropriate resection and subsequently sized to be a 31 mm symmetric.? My drill peg guides were then clamped and appropriate position and appropriate position in the patella for appropriate tracking and parallel with the joint.? Pegs were drilled trial implant was placed and the knee was then subsequently ranged and found to have excellent patellar tracking.? Femur pegs were then drilled.? At this point time all of our trial implants were removed.? All checkpoints as well as guidepins and arrays were removed and appropriate counts made.?Satisfied with our tibial placement rotation I then utilized the keel punch and prepped the tibia.? The wound bed? was thoroughly irrigated and dried and prepped for cementation.? Cement was mixed on the back table.? Once cement was ready this was then covered onto the tibia and the tibial baseplate was then impacted and all excess cement was removed.? Next the polyethylene was then impacted into place on the tibial baseplate.? Next cement was placed onto the femur as well as under the femur implants and impacted in to place and all excess cement was extruded and removed.? Knee was taken into full extension? to clear all excess cement was removed.? Warm saline was placed over the joint.? I then towel clip patella and dried for cementation. cemented the patella into place.? This was all clamped and the cement was allowed to cure.? Thorough irrigation performed with pulse?lavage.? I then placed my periarticular injection while the cement was curing.? Once cured the knee was taken through range of motion and had excellent stability and gaps were balanced in flexion and extension.? Tourniquet was then deflated. hemostasis satisfactory with electrocautery. Vancomycin powder was placed in wound bed for antibiotic infection prophylaxis.? Next I then subsequently closed the capsule with Ethibond suture as well as a running strata fix suture.? Knee was then taken through range of motion 30 times.? Next the skin was then closed in?layered fashion of running stratifix sutures of deep and subcutenous tissue and skin.? ?closed in flexion and patricia for skin ? Incision was covered with shannon, with ABDs soft roll and Danny wrap.? Patient was then awakened from anesthesia and taken to PACU in stable condition. Disposition: Patient taken to PACU in stable condition will be admitted to the floor for pain control PT/OT weight-bear as tolerated?Right?lower extremity dressing changes as needed, DVT prophylaxis. Pain control. Patient will receive appropriate postoperative antibiotics. patient will be seen today by the internal medicine team for medical management.? Patient will follow up with the office in 2 weeks.? Patient understands agrees with current plan.? All questions answered.
--- NOTE | 2024-12-27 09:35 | XRR_ITS ---
PROCEDURE INFORMATION: Exam: XR Right Knee Exam date and time: 12/27/2024 9:42 AM Age: 79 years old Clinical indication: Device placement; Joint replacement hardware; Prior surgery; Surgery date: Post-operative (0-2 days); Surgery type: Right tka; Additional info: Postop right tka TECHNIQUE: Imaging protocol: Radiologic exam of the right knee. Views: 1 or 2 views. COMPARISON: CT knee RT [facility] [id number] 12/01/2024 12:14 PM FINDINGS: Bones/joints: Three-part knee prosthesis in anatomic alignment. No fractures. Anterior soft tissue gas and swelling with surgical patricia. Soft tissues: See Bones/joints finding. XR/XR knee RT 1-2V [id number] IMPRESSION: Postsurgical changes of a right knee prosthesis.
--- NOTE | 2024-12-27 10:02 | PM.PACU ---
PACU note Narrative: Patient is a 79-year-old female just underwent a right total knee arthroplasty. Pt transferred to PACU in stable condition. Dressing is dry. pt is awake and alert. Distal pulses are palpable toes are warm and well-perfused. Cap refill is normal and under 2 seconds. Unable to further assess motor or sensory function of the lower leg due to residual spinal block. Pain is controlled. Exam: awake Disposition: admitted
--- NOTE | 2024-12-27 10:05 | ANE.PACU2 ---
Inpatient post-anesthesia follow up: Airway intact: Yes Vital signs: Temperature 99.3 F Pulse Rate 74 Respiratory Rate 16 Blood Pressure 163/77 Pulse Oximetry 99 Oxygen Delivery Me thod Nasal Cannula Oxygen Flow Rate 2 Fraction of Inspir ed Oxygen Hydration adequate: Yes Nausea and vomiting: No Pain level: 1 Mental status: Baseline
[2024-12-27] MEDS: acetaminophen 1,000 MG/100 ML PIGGYBACK 400 MG IV ×2 (10:59→17:33)
--- NOTE | 2024-12-27 10:59 | PM.CONSULT ---
Providers/Reason For Consult Consulting Physician/Specialty*: Hospitalist Reason for Consult*: Medical management Attending Physician: Saúl Moise DO Primary Care Provider: Sixto Paul MD History of Present Illness History of Present Illness Sal Mariano is a 79 year old female with a history of chronic kidney disease, hypertension, hyperlipidemia, obstructive sleep apnea, Parkinson's disease, deep vein thrombosis, anemia, and pacemaker placement, presenting for post-operative management following a planned right total knee arthroplasty. The orthopedic procedure was uneventful with minimal blood loss (25 mL). The patient is pending further physical therapy evaluation and has tentative discharge plans to return home. She reports no current complaints, including no shortness of breath or nausea. She uses CPAP at times for sleep apnea. There is a plan to resume some of her home medications and to be cautious with pain medications due to her kidney function. She does not have diabetes. The patient is alert but somewhat drowsy post-operatively. She is aware of the need for incentive spirometry and CPAP use as part of her post-operative care. Review of Systems Const: Reports: other (Not in pain currently.); Denies: malaise Resp: Denies: dyspnea Medications/Allergies Home Medications ?Medication ?Instructions ?Recorded ?Confirmed ?Last Taken ?Type cyanocobalamin (vitamin B-12) 1,000 mcg SUBCUT DAILY 10/11/21 12/27/24 1 Day Ago History 1,000 mcg/mL injection solution ~12/22/24 famotidine 40 mg tablet 40 mg PO DAILY 10/11/21 12/27/24 12/27/24 History ferrous fumarate 325 mg (106 mg 325 mg PO DAILY 10/11/21 12/27/24 1 Day Ago History iron) tablet ~12/22/24 memantine 10 mg tablet 10 mg PO BID 10/11/21 12/27/24 12/27/24 History albuterol sulfate 90 mcg/actuation 1 inh inhalation QID 08/11/24 12/27/24 Unknown History aerosol inhaler carbidopa 25 mg-levodopa 100 mg 2 tab PO TID 08/11/24 12/27/24 12/27/24 History tablet (Sinemet) carvedilol 12.5 mg tablet 12.5 mg PO DAILY 08/11/24 12/27/24 12/27/24 History diltiazem HCl 240 mg 240 mg PO DAILY 08/11/24 12/27/24 12/27/24 History capsule,extended release 24 hr (Cardizem CD) donepezil 10 mg tablet 10 mg PO DAILY 08/11/24 12/27/24 12/27/24 History duloxetine 60 mg capsule,delayed 60 mg PO DAILY 08/11/24 12/27/24 12/27/24 History release fluticasone furoate 27.5 1 spray intranasal DAILY 08/11/24 12/27/24 1 Day Ago History mcg/actuation nasal ~12/22/24 spray,suspension lisinopril 40 mg tablet 40 mg PO DAILY 08/11/24 12/27/24 1 Day Ago History ~12/22/24 mirtazapine 15 mg tablet 15 mg PO DAILY 08/11/24 12/27/24 12/26/24 History multivitamin 1 tab PO DAILY 08/11/24 12/27/24 12/27/24 History rosuvastatin 10 mg tablet 10 mg PO DAILY 08/11/24 12/27/24 12/27/24 History acetaminophen 650 mg 1,300 mg PO Q12H 12/22/24 12/27/24 12/27/24 History tablet,extended release docusate sodium 50 mg capsule 50 mg PO DAILY 12/22/24 12/27/24 Unknown History gabapentin 100 mg capsule 600 mg PO BID 12/22/24 12/27/24 12/27/24 History lorazepam 1 mg tablet 0.5 mg PO BID PRN Anxiety 12/22/24 12/27/24 12/27/24 History magnesium oxide 500 mg capsule 400 mg PO BID 12/22/24 12/27/24 12/27/24 History pantoprazole 40 mg tablet,delayed 40 mg PO BID 12/22/24 12/27/24 12/27/24 History release polyethylene glycol 3350 17 4 g PO DAILY 12/22/24 12/27/24 Unknown History gram/dose oral powder (Miralax) Allergies Allergy/AdvReac Type Severity Reaction Status Date / Time Iodinated Contrast Media Allergy Severe ADR-Numbnes Verified 12/27/24 06:18 s PFSH Acute PFSH: Medical History Pacemaker Bradycardia Anemia DVT (deep venous thrombosis) CKD (chronic kidney disease) TIMOTHY (obstructive sleep apnea) HLD (hyperlipidemia) HTN (hypertension) Parkinson disease Social History Smoking and tobacco/nicotine status: never used tobacco/nicotine Marital status: Vitals/I&O/Wt Last Vital Signs Temp 99.3 F 12/27/24 10:05 Pulse 60 12/27/24 10:05 Resp 18 12/27/24 10:05 BP 163/77 12/27/24 10:05 Pulse Ox 100 12/27/24 10:05 O2 Del Method Nasal Cannula 12/27/24 10:15 O2 Flow Rate 2 12/27/24 10:05 12/26/24 12/27/24 12/27/24 22:59 06:59 14:59 Intake Total 650 / 650 Output Total 125 / 125 Balance 525 / 525 Weight last 48 hrs Weight 92.53 kg Weight 92.533 kg Physical Exam Narrative: Accompanied by family with and daughter by the bedside. Const: COMMON NORMALS: patient oriented x3 GENERAL APPEARANCE: cooperative HENMT: COMMON NORMALS: oropharynx normal Neck/C-Spine: COMMON NORMALS: no JVD Resp: COMMON NORMALS: normal respiratory effort and clear to auscultation bilaterally AUSCULTATION: clear to auscultation bilaterally Cardio: COMMON NORMALS: no JVD, regular rhythm, S1 normal heart sound present, S2 normal heart sound present and No murmurs present (Cardio) RHYTHM: regular rhythm HEART SOUNDS: S1 normal heart sound present and S2 normal heart sound present GI: COMMON NORMALS: Normal to inspection, nondistended, normoactive bowel sounds present, Soft to palpation and non-tender PALPATION: Yes Soft to palpation Extremity: COMMON NORMALS: no joint enlargement and no pedal edema NARRATIVE EXTREMITY EXAM: Postoperative dressing right leg. Cool pack. Distal extremity warm, perfused. Neuro: COMMON NORMALS: patient oriented x3 and moves all extremities Skin: COMMON NORMALS: no rashes or lesions noted GENERAL SKIN EXAM: no rashes or lesions noted Data 12/27/24 06:27 12/27/24 06:27 A&P Assessment and plan (1) S/P total knee arthroplasty: Post-operative care after right total knee arthroplasty : Patient is recovering from a planned right total knee arthroplasty. The procedure was uneventful with minimal blood loss (25 mL) per discussion with orthopedic surgeon. Reviewed brief surgery note. She is pending further physical therapy evaluation and has tentative discharge plans to return home. There is a plan to monitor blood counts post-operatively due to the risk of drop after surgery. She will be started on blood thinner medication (Eliquis) to prevent blood clots, as she tolerated this well previously. She will be encouraged to use an incentive spirometer every hour to help keep the lungs open and prevent pneumonia. The patient reports no current complaints, including no shortness of breath or nausea. She is somewhat drowsy but responsive. Reviewed vitals, CBC, BMP, knee x-ray. On my interpretation hardware in good positioning. Pending official read. - Monitor blood counts post-operatively - Start Eliquis for DVT prophylaxis once deemed safe per surgery - Encouraged use of incentive spirometer every hour - Physical therapy evaluation - Tentative discharge plan to return home - Antiemetic as needed. Pain control as needed, oxycodone, receiving IV acetaminophen as needed, hydromorphone as needed IV for severe breakthrough pain. Would avoid NSAIDs due to CKD. Caution with tramadol, may increase risk of bleeding in combination with her antidepressant. - Bowel regimen Plan Chronic kidney disease : Patient has chronic kidney disease. There is a plan to follow up on kidney function and to be cautious with pain medication selection due to renal impairment. - Monitor kidney function - Be cautious with pain medication selection. Would avoid NSAIDs. Hypertension : History of hypertension. Plan to follow up on blood pressure during hospitalization. Resume home medication with carvedilol Cardizem lisinopril - Monitor blood pressure Hyperlipidemia : History of hyperlipidemia. Continue statin. Obstructive sleep apnea : History of obstructive sleep apnea. Patient uses CPAP at times. Plan to have respiratory therapy set up CPAP for her during hospitalization. - Request respiratory therapy to set up CPAP Parkinson's disease : History of Parkinson's disease. Resume home medication. Hx Deep vein thrombosis : History of DVT. DVT prophylaxis planned with Eliquis post-operatively. - Will be started on Eliquis for DVT prophylaxis once deemed safe by surgery Anemia : History of anemia. Plan to monitor blood counts post-operatively. - Monitor blood counts post-operatively Pacemaker : History of pacemaker placement. PDMP PDMP Reviewed: Not Reviewed Consult Attestations Medical Necessity Statement: Being placed in observation for postoperative assessment and management after right TKA in a lady with underlying CKD, Parkinson's disease and additional comorbidities as above. and High MDM includes amount and/or complexity of data reviewed/ordered [ previous or external records, resulted lab(s)/test(s), ordered lab(s)/test(s), independent test interpretation and other healthcare professional discussion] and described risk of complication, morbidity or mortality of management as documented Diagnoses S/P total knee arthroplasty Z96.659
[2024-12-27] MEDS: lactated ringers 1,000 ML 100 ML IV ×2 (11:00→21:57)
[2024-12-27] MEDS: oxyCODONE 5 mg IR Tab/Cap PO ×3 (12:58→21:54)
[2024-12-27] MEDS: chlorhexidine gluconate 0.12% Btl 473 mL 30 ML MUCOUS MEM ×2 (12:59→17:33)
[2024-12-27] MEDS: carbidopa-levodopa 25-100mg Tablet 2 EACH PO ×2 (12:59→21:55)
[2024-12-27] MEDS: mirtazapine 15 mg Tablet PO (13:00)
--- NOTE | 2024-12-27 14:39 | PC.NURSE ---
RESPIRATORY HERE EARLIER AND WENT OVER HER IS WITH HER AND HER FAMILY.
--- NOTE | 2024-12-27 14:40 | PC.NURSE ---
PT HERE AND WORKING WITH PATIENT
--- NOTE | 2024-12-27 15:28 | PC.OT ---
Hold OT eval 12/27 due to surgery; will attempt again at later time.
[2024-12-27] MEDS: pantoprazole DR 40 mg Tablet PO (17:14)
[2024-12-27] MEDS: iron polysaccharide complex 150 mg Capsule PO (17:14)
[2024-12-27] MEDS: magnesium oxide 400 mg tablet PO (17:14)
[2024-12-27] MEDS: docusate sodium 100 mg Capsule PO (17:14)
[2024-12-27] MEDS: calcium carb-vit d 600mg/400unit 1 Tablet 1 EACH PO (17:14)
[2024-12-27] MEDS: gabapentin 300 mg Capsule 600 MG PO (17:14)
[2024-12-27] MEDS: memantine 5 mg tablet 10 MG PO (17:15)
[2024-12-27] MEDS: mupirocin oint 22 gm 1 APPLIC NASAL (17:15)
[2024-12-28] MEDS: LORazepam 1 mg Tablet 0.5 MG PO ×2 (01:47→11:51)
[2024-12-28] MEDS: acetaminophen 1,000 MG/100 ML PIGGYBACK 400 MG IV (01:48)
[2024-12-28 02:58] VITALS: RESP 16; O2SAT 92
[2024-12-28] MEDS: oxyCODONE 5 mg IR Tab/Cap PO ×3 (02:58→11:50)
[2024-12-28 04:09] LABS: Basophils % 0.1 %; Hematocrit 33.3 % (36-47); Lymphocytes # 1.1 10^3/uL (0.8-4.8); Lymphocytes % 7.9 %; Mean Corpuscular HGB Conc 31.8 g/dL (30-55); Mean Corpuscular Hemoglobin 31.8 pg (27-33); Mean Platelet Volume 10.1 fL (7.4-10.4); Monocytes # 1.1 10^3/uL (0.2-0.9); Monocytes % 7.9 %; Neutrophils % 83.6 %; Nucleated Red Blood Cells % 0 %; Platelet Count 196 10^3/cmm (157-399); Red Blood Count 3.33 10^6/uL (3.85-5.65); Red Cell Distribution Width 13.3 % (12.1-15.1); White Blood Count 14.23 10^3/uL (3.29-11.43)
[2024-12-28 04:26] LABS: Anion Gap 15.5 (5-19); Blood Urea Nitrogen 39 mg/dL (8-23); Calcium 8.5 mg/dL (8.5-10.5); Carbon Dioxide 24 mmol/L (22-29); Chloride 104 mmol/L (98-107); Creatinine Clr Calc Pharmacy 31.9457; Glucose 129 mg/dL (65-115); Osmolality Calculated 299 mOsm/kg (285-295); Potassium 4.5 mmol/L (3.5-5.1); Sodium 139 mmol/L (136-145)
[2024-12-28] MEDS: methocarbamol 500 mg Tablet PO (06:27)
[2024-12-28 06:37] VITALS: BP 192/73; PULSE 64; RESP 17; O2SAT 97
[2024-12-28 07:03] VITALS: BP 175/76; PULSE 74; RESP 16
--- NOTE | 2024-12-28 07:53 | P.PN_ITS ---
Subjective 2 Subjective: She says she was able to get some sleep through the night this morning her knee is sore. She has been using incentive spirometer. Discussed with her decrease in hemoglobin. Yesterday she ambulated with physical therapy and good distance. Vitals/I&O/Wt Last Vital Signs Temp 98.4 F 12/27/24 21:59 Pulse 74 12/28/24 07:03 Resp 16 12/28/24 07:03 BP 175/76 12/28/24 07:03 Pulse Ox 97 12/28/24 06:37 O2 Del Method Room Air 12/28/24 07:03 O2 Flow Rate 2 12/27/24 21:05 12/27/24 12/28/24 12/28/24 22:59 06:59 14:59 Intake Total 1750 / 3100 Output Total 150 / 1875 250 / 2125 Balance 1600 / 1225 -250 / 975 Weight last 48 hrs Weight 92.53 kg Weight 92.533 kg Physical Exam 2 Const: COMMON NORMALS: patient oriented x3 GENERAL APPEARANCE: cooperative HENMT: COMMON NORMALS: oropharynx normal Neck/C-Spine: COMMON NORMALS: no JVD Resp: COMMON NORMALS: normal respiratory effort and clear to auscultation bilaterally AUSCULTATION: clear to auscultation bilaterally Cardio: COMMON NORMALS: no JVD, regular rhythm, S1 normal heart sound present, S2 normal heart sound present and No murmurs present (Cardio) RHYTHM: regular rhythm HEART SOUNDS: S1 normal heart sound present and S2 normal heart sound present GI: COMMON NORMALS: Normal to inspection, nondistended, normoactive bowel sounds present, Soft to palpation and non-tender PALPATION: Yes Soft to palpation Extremity: COMMON NORMALS: no joint enlargement and no pedal edema N ARRATIVE EXTREMITY EXAM: Postoperative dressing right leg. Cool pack. Distal extremity warm, perfused. Neuro: COMMON NORMALS: patient oriented x3 and moves all extremities Skin: COMMON NORMALS: no rashes or lesions noted GENERAL SKIN EXAM: no rashes or lesions noted Data 12/28/24 04:03 12/28/24 04:03 A&P Assessment and plan (1) S/P total knee arthroplasty: Discussed with her hemoglobin is down to 10.6, she will follow-up with primary provider for reassessment. She is hypertensive this morning 175/76, eating breakfast. Can discontinue IVF. She is having pain, needing oxycodone. Muscle relaxer helped overnight. Has hydromorphone IV for severe breakthrough if needed. Reviewed vitals, CBC, BMP, orthopedic note. Has been started on prophylactic Eliquis - Tentative discharge plan to return home today - Antiemetic as needed. Pain control as needed, oxycodone, receiving IV acetaminophen as needed, hydromorphone as needed IV for severe breakthrough pain. Would avoid NSAIDs due to CKD. Caution with tramadol, may increase risk of bleeding in combination with her antidepressant. - Bowel regimen Plan Chronic kidney disease : Creatinine with slight increase up to 1.6, close to her baseline. With patient has chronic kidney disease. There is a plan to follow up on kidney function and to be cautious with pain medication selection due to renal impairment. - Monitor kidney function - Be cautious with pain medication selection. Would avoid NSAIDs. Hypertension : History of hypertension. DC IV fluid. Continue carvedilol and diltiazem, resume lisinopril. Hyperlipidemia : History of hyperlipidemia. Continue statin. Obstructive sleep apnea : History of obstructive sleep apnea. Patient uses CPAP at times. Plan to have respiratory therapy set up CPAP for her during hospitalization. - Request respiratory therapy to set up CPAP Parkinson's disease : History of Parkinson's disease. Resume home medication. Hx Deep vein thrombosis : History of DVT. DVT prophylaxis planned with Eliquis post-operatively. - started on Eliquis Anemia : History of anemia. Plan to monitor blood counts post-operatively. - Monitor blood counts post-operatively Pacemaker : History of pacemaker placement. PDMP PDMP Reviewed: Not Reviewed Attestations 2 Medical Necessity Statement*: Likely return home today after right TKA. Diagnoses S/P total knee arthroplasty Z96.659
[2024-12-28] MEDS: donepezil 5 MG Tablet 10 MG PO (07:57)
[2024-12-28] MEDS: duloxetine 60 mg Capsule PO (07:58)
[2024-12-28] MEDS: dilTIAZem ER (24HR) 240 mg Capsule PO (07:58)
[2024-12-28] MEDS: carvedilol 12.5 mg Tablet PO (07:58)
[2024-12-28] MEDS: memantine 5 mg tablet 10 MG PO (07:58)
[2024-12-28 07:59] VITALS: RESP 18
[2024-12-28] MEDS: polyethylene glycol 3350 Pkt 17 gm 4 GM PO (07:59)
[2024-12-28] MEDS: calcium carb-vit d 600mg/400unit 1 Tablet 1 EACH PO (08:00)
[2024-12-28] MEDS: iron polysaccharide complex 150 mg Capsule PO (08:00)
[2024-12-28] MEDS: apixaban 5 mg Tablet 2.5 MG PO (08:00)
[2024-12-28] MEDS: atorvastatin 40 mg Tablet PO (08:01)
[2024-12-28] MEDS: magnesium oxide 400 mg tablet PO (08:01)
[2024-12-28] MEDS: pantoprazole DR 40 mg Tablet PO (08:01)
[2024-12-28] MEDS: chlorhexidine gluconate 0.12% Btl 473 mL 30 ML MUCOUS MEM (08:01)
[2024-12-28] MEDS: gabapentin 300 mg Capsule 600 MG PO (08:01)
[2024-12-28] MEDS: docusate sodium 100 mg Capsule PO (08:01)
[2024-12-28] MEDS: mupirocin oint 22 gm 1 APPLIC NASAL (08:02)
[2024-12-28] MEDS: multivitamin therapeutic Tablet 1 TAB PO (08:06)
[2024-12-28] MEDS: lisinopril 20 mg Tablet 40 MG PO (08:44)
[2024-12-28] MEDS: carbidopa-levodopa 25-100mg Tablet 2 EACH PO (08:44)
[2024-12-28 11:50] VITALS: RESP 18
--- NOTE | 2024-12-28 12:12 | PM.DCS ---
Discharge Providers Date of Admission: 12/27/24 09:23 Date of Discharge: December 28, 2024 Attending Provider at Admission: Saúl Moise DO Attending Provider at Discharge: Saúl Moise DO Consults: Dr. Vega?hospitalist Primary Care Provider: Sixto Paul MD Diagnoses at Discharge Discharge Diagnosis (1) S/P total knee arthroplasty: Status: Acute Reason for Visit Reason for Visit: M17.0 Brief History: Status post right total knee arthroplasty?Sher robotic assisted Hospital Course Hospital Course Patient presented to the preoperative holding area with plan for right total knee arthroplasty after patient has been worked up in the outpatient setting for failed conservative treatment of [right] knee degenerative joint disease. Once cleared by anesthesia for surgery patient subsequently was taken back to the operative suite underwent anesthesia per anesthesia department and then subsequently underwent a [right] total knee arthroplasty. Procedure was performed without any complications patient was taken to PACU in stable condition patient recovered well in PACU and then was admitted to the floor postoperatively internal medicine was consulted and on board for medical management and assistance with care. Patient received appropriate PT/OT, postoperative antibiotics, pain control, postoperative DVT prophylaxis. Elevation and ice. Patient encouraged for knee range of motion allowed weightbearing as tolerated to the operative lower extremity. Dressing was changed as needed, labs were monitored daily. Patient recovered well postoperatively and worked well and progressed well with therapy. It was determined on postoperative day [ 1] the patient was stable for discharge from an orthopedic standpoint and medicine. Patient was comfortable with discharge and plan was discharged home. Patient received appropriate discharge instructions as well as pain medication and DVT prophylaxis postoperatively. Given appropriate instructions for dressing management. Patient will follow-up with Dr. Moise/orthopedics in the office in 2 weeks. All questions answered. Understand if there is any issues questions or concerns and contact the office. Physical Exam Narrative: Right knee examination: Dressing on in place, clean dry and intact. Ivett incisional VAC dressing on in place with good seal no evidence of saturation. Patient has normal postoperative swelling and tenderness to palpation to the knee. Compartments are soft compressible,'s calf soft and nontender. Sensations intact to light touch distally. Distal pulses are palpable. Patient is able to wiggle toes as well as plantarflex and dorsiflex ankle. Discharge Data Studies Completed and Pending Completed Studies During Hospitalization Category Date Time Status XR knee RT 1-2V [id number] Routine Exams 12/27/24 09:35 Completed Pending at discharge Category Date Time Status Basic Metabolic Panel AM LABS Lab 12/29/24 04:00 Ordered Basic Metabolic Panel AM LABS Lab 12/30/24 04:00 Ordered Complete Blood Count w/Auto AM LABS Lab 12/29/24 04:00 Ordered Complete Blood Count w/Auto AM LABS Lab 12/30/24 04:00 Ordered Radiology Impressions Knee X-Ray 12/27/24 09:35 IMPRESSION: Postsurgical changes of a right knee prosthesis. Laboratory Results WBC 14.23 10^3/uL (3.29-11.43) H 12/28/24 04:03 RBC 3.33 10^6/uL (3.85-5.65) L 12/28/24 04:03 Hgb 10.60 g/dL (11.27-16.99) L 12/28/24 04:03 Hct 33.3 % (36-47) L 12/28/24 04:03 MCV 100.0 fl (85-98) H 12/28/24 04:03 MCH 31.8 pg (27-33) 12/28/24 04:03 MCHC 31.8 g/dL (30-55) 12/28/24 04:03 RDW 13.3 % (12.1-15.1) 12/28/24 04:03 Plt Count 196 10^3/cmm (157-399) 12/28/24 04:03 MPV 10.1 fL (7.4-10.4) 12/28/24 04:03 Neut % (Auto) 83.6 % 12/28/24 04:03 Lymph % (Auto) 7.9 % 12/28/24 04:03 [place] % (Auto) 7.9 % 12/28/24 04:03 Eos % (Auto) 0.0 % 12/28/24 04:03 Baso % (Auto) 0.1 % 12/28/24 04:03 Neut # (Auto) 11.90 10^3/uL (1.8-7.7) H 12/28/24 04:03 Lymph # (Auto) 1.1 10^3/uL (0.8-4.8) 12/28/24 04:03 [place] # (Auto) 1.1 10^3/uL (0.2-0.9) H 12/28/24 04:03 Eos # (Auto) 0.0 10^3/uL (0.0-0.8) 12/28/24 04:03 Baso # (Auto) 0.0 10^3/uL (0.0-0.1) 12/28/24 04:03 Nucleated RBC % (auto) 0 % 12/28/24 04:03 Nucleated RBCs # 0.0 /100WBC 12/28/24 04:03 Sodium 139 mmol/L (136-145) 12/28/24 04:03 Potassium 4.5 mmol/L (3.5-5.1) 12/28/24 04:03 Chloride 104 mmol/L (98-107) 12/28/24 04:03 Carbon Dioxide 24 mmol/L (22-29) 12/28/24 04:03 Anion Gap 15.5 (5-19) 12/28/24 04:03 BUN 39 mg/dL (8-23) H 12/28/24 04:03 Creatinine 1.6 mg/dL (0.5-0.9) H 12/28/24 04:03 GFR Calculation Not Reportable 12/28/24 04:03 Glucose 129 mg/dL (65-115) H 12/28/24 04:03 Calculated Osmolality 299 mOsm/kg (285-295) H 12/28/24 04:03 Calcium 8.5 mg/dL (8.5-10.5) 12/28/24 04:03 Blood Type O Positive 12/27/24 06:27 Rho(D) Type Rh positive 12/27/24 06:27 Antibody Screen Negative 12/27/24 06:27 Vitals Last Vital Signs Temp 98.4 F 12/27/24 21:59 Pulse 74 12/28/24 07:03 Resp 18 12/28/24 11:50 BP 175/76 12/28/24 07:03 Pulse Ox 97 12/28/24 06:37 O2 Del Method Room Air 12/28/24 07:03 O2 Flow Rate 2 12/27/24 21:05 Discharge Plan Discharge Patient Disposition: Home Health Service Condition: Good Prescriptions: New Eliquis 2.5 mg tablet 2.5 mg PO BID 14 Days Qty: 28 0RF methocarbamol 500 mg tablet 500 mg PO TID PRN (Reason: muscle spasms/pain) 14 Days Qty: 42 0RF oxycodone 5 mg tablet 5 mg PO Q6H PRN (Reason: pain postop) 7 Days Qty: 28 0RF Continued cyanocobalamin (vitamin B-12) 1,000 mcg/mL solution 1,000 mcg SUBCUT DAILY famotidine 40 mg tablet 40 mg PO DAILY ferrous fumarate 325 mg (106 mg iron) tablet 325 mg PO DAILY memantine 10 mg tablet 10 mg PO BID gabapentin 100 mg capsule 600 mg PO BID lorazepam 1 mg tablet 0.5 mg PO BID PRN (Reason: Anxiety) magnesium oxide 500 mg capsule 400 mg PO BID albuterol sulfate 90 mcg/actuation HFA aerosol inhaler 1 inh inhalation QID carbidopa-levodopa [Sinemet] 25-100 mg tablet 2 tab PO TID carvedilol 12.5 mg tablet 12.5 mg PO DAILY Rx Instructions: must administer with a meal/food diltiazem HCl [Cardizem CD] 240 mg capsule,extended release 24hr 240 mg PO DAILY donepezil 10 mg tablet 10 mg PO DAILY duloxetine 60 mg capsule,delayed release(DR/EC) 60 mg PO DAILY fluticasone furoate 27.5 mcg/actuation spray,suspension 1 spray intranasal DAILY Rx Instructions: into each nostril lisinopril 40 mg tablet 40 mg PO DAILY mirtazapine 15 mg tablet 15 mg PO DAILY multivitamin Tablet 1 tab PO DAILY rosuvastatin 10 mg tablet 10 mg PO DAILY pantoprazole 40 mg tablet,delayed release (DR/EC) 40 mg PO BID docusate sodium 50 mg capsule 50 mg PO DAILY acetaminophen 650 mg tablet extended release 1,300 mg PO Q12H polyethylene glycol 3350 [Miralax] 17 gram/dose powder 4 g PO DAILY Discharge Orders: Discharge Order (Routine); Ordered 12/28/24 Ordered By: Jj Vega Referrals: [facility] [Outside] Sixto Paul MD [Primary Care Provider, Internal Medicine] - 01/06/25 11:15 am Referral Note: * Your follow up appointment is with Dorys Abdi on 01/06/2025 at 11:15am Saúl Moise DO [Physician, Orthopedics] - 01/11/25 1:45 pm Referral Note: * Your post op appointment is on 01/11/2025 at 1:45pm Discharge Diet: Regular Discharge Activity: Limit activity as instructed Patient Instructions: Acute Wound Care (DC), Total Knee Replacement (DC), Revision Total Joint Arthroplasty (DC), Opioid Safety, Post Anesthesia Care, Patient Portal & Alberto Instructions Activity Restrictions/Additional Instructions: Orthopedic discharge instructions. Ivett Dressing--Keep dressing on and dry. After 3 days you can remove some of the dressing and shower. disconnect battery pack when showering. Ivett dressing will stay on until follow up appt in 2 weeks. The battery pack for the dressing will at 5-7 days. Battery pack can be removed and discarded once batteries . Patient may weight-bear as tolerate to the operative extremity Utilize walker as needed Encourage knee range of motion Ice and elevate as needed for pain and swelling Take pain medication as prescribed Take antinausea medication as needed May take muscle relaxer as needed for muscle spasms Pain medication can cause constipation. take [id number] stool softeners and or MiraLAX. Take prescribed Eliquis twice daily for the next 14 days for blood clot prevention May supplement for pain with Tylenol [id number] as needed(1000 mg every 8 hours-do not exceed more than 3000mg in 24-hour period) No baths or soaks Follow-up in the orthopedic office in 2 weeks Contact the office for any questions or concerns Follow-up with your primary doctor for reassessment of hemoglobin/anemia and renal function. Discharge Attestations Time Spent in Discharge Care*: less than 30 min Quality Metrics Clinical Quality Measures [ No reported AMI, CVA or VTE this stay] Coding Level of Care Code Acute Code for Chg Fwd Diagnoses S/P total knee arthroplasty Z96.659 Time Spent (min) 25
[2024-12-28 12:30] VITALS: BP 151/77; PULSE 81; RESP 18; TEMP 36.5; O2SAT 97
== END 2024-12-28 12:30 | disposition home health service (06) ==
LOC: OBGYN 09:23
PROVIDERS: Physician Assistant; Admitting Provider Student in an Organized Health Care Education/Training Program; PCP Internal Medicine; Visit Provider Student in an Organized Health Care Education/Training Program
PROC: 8E0Y0CZ Robotic Assisted Procedure of Lower Extremity, Open Approach (ICD-10-PCS; CPT 27447; principal; 2024-12-27 07:00)
DX: M17.11 Unilateral primary osteoarthritis, right knee (principal); Z95.810 Presence of automatic (implantable) cardiac defibrillator; I12.9 Hypertensive chronic kidney disease with stage 1 through stage 4 chronic kidney disease, or unspecified chronic kidney disease; N18.9 Chronic kidney disease, unspecified; E78.5 Hyperlipidemia, unspecified; G47.33 Obstructive sleep apnea (adult) (pediatric); K21.9 Gastro-esophageal reflux disease without esophagitis; D64.9 Anemia, unspecified; I82.409 Acute embolism and thrombosis of unspecified deep veins of unspecified lower extremity
CPT/HCPCS: 27447; 20985; 36415; 73560; 80048; 85025; 86850; 86900; 94660; 97110; 97116; 97161; 97165; A4216; C1713; C1776; G0378; J0131; J0171; J0690; J1100; J1885; J2250; J2371; J2405; J2704; J2795; J3370; J7030; J7120; J9999; L8699

== ENCOUNTER → 2025-01-11 12:59 | Outpatient (BNVA) | payer MEDICARE, OTHER, SELFPAY | PROVIDERS: PCP Internal Medicine; Visit Provider Physician Assistant | DX: Z96.651 Presence of right artificial knee joint (principal) | CPT/HCPCS: 73560; 73565; 99024 ==

== ENCOUNTER → 2025-03-01 12:46 | Outpatient (BNVA) | payer MEDICARE, OTHER, SELFPAY | PROVIDERS: PCP Internal Medicine; Visit Provider Student in an Organized Health Care Education/Training Program | DX: Z96.651 Presence of right artificial knee joint (principal) | CPT/HCPCS: 73560; 73565; 99024 ==

== ENCOUNTER → 2025-04-26 08:36 | Outpatient (BNVA) | payer MEDICARE, OTHER, SELFPAY | PROVIDERS: PCP Internal Medicine; Visit Provider Student in an Organized Health Care Education/Training Program | DX: Z96.653 Presence of artificial knee joint, bilateral (principal) | CPT/HCPCS: 73560; 73565; 99213 ==